=== PATIENT | male | born 1945 | race Caucasian/White ===

== ENCOUNTER → 2020-01-16 17:36 | Outpatient (BNVA) | payer MEDICARE, SELFPAY | PROVIDERS: PCP Nurse Practitioner Family; Visit Provider Nurse Practitioner Family | DX: R42 Dizziness and giddiness (principal); R53.83 Other fatigue; I10 Essential (primary) hypertension; T78.3XXA Angioneurotic edema, initial encounter; F10.10 Alcohol abuse, uncomplicated; E78.5 Hyperlipidemia, unspecified; E53.8 Deficiency of other specified B group vitamins; W57.XXXA Bitten or stung by nonvenomous insect and other nonvenomous arthropods, initial encounter; E55.9 Vitamin D deficiency, unspecified | CPT/HCPCS: 80053; 80061; 81003; 82306; 82607; 84443; 85025 ==

== ENCOUNTER 2020-02-14 07:22 | Outpatient (CLI) | payer MEDICARE, SELFPAY ==
--- NOTE | 2020-02-14 07:30 | XRR_ITS ---
PROCEDURE INFORMATION: Exam: XR Chest, 2 Views Exam date and time: 02/14/2020 8:21 AM Age: 74 years old Clinical indication: Pain and injury or trauma; Fall; Initial encounter; Blunt trauma (contusions or hematomas); Pleuordynia and other: Rib pain; Additional info: Rib pain; Pain on deep breath TECHNIQUE: Imaging protocol: XR of the chest Views: 2 views. COMPARISON: No relevant prior studies available. FINDINGS: Lungs: Mild hyperinflation. Pleural space: Unremarkable. No pleural effusion. No pneumothorax. Heart/Mediastinum: Unremarkable. No cardiomegaly. Bones/joints: Degenerative change of the spine. XR/XR chest 2V* [id number] IMPRESSION: 1. No acute cardiopulmonary process.
--- NOTE | 2020-02-14 07:30 | XRR_ITS ---
PROCEDURE INFORMATION: Exam: XR Right Ribs Exam date and time: 02/14/2020 8:21 AM Age: 74 years old Clinical indication: Pain and injury or trauma; Fall; Initial encounter; Rib area; Blunt trauma (contusions or hematomas); Other: Rib pain TECHNIQUE: Imaging protocol: XR Right ribs. Views: 2 views. COMPARISON: No relevant prior studies available. FINDINGS: Bones/joints: Degenerative change of the spine. Osteopenia. Degenerative change of right shoulder. Note of chronic fracture deformity of left 9th and 10th ribs. Soft tissues: Normal. XR/XR ribs RT 2V* [id number] IMPRESSION: Unremarkable right ribs.
--- NOTE | 2020-02-14 09:30 | US_ITS ---
WS: [id number] Complete ABDOMINAL ULTRASOUND HISTORY: elevated liver enzymes COMPARISON: None available. Liver: 16.0 cm in length. Liver is moderately enlarged. Increased attenuation throughout the liver wi th coarsened echotexture. No mass or bile duct dilatation. Gallbladder: Normally distended with no gallstones, wall thickening or pericholecystic fluid. Gallbladder wall thickness: 0.2 cm. Pancreas: Not visualized. CBD: 0.4 cm. Right kidney: 10.7 cm x 4.7 cm x 5.4 cm. No mass, cortical thickening or hydronephrosis. Left kidney: 9.3 cm x 4.7 cm x 6.0 cm. No mass, cortical thickening or hydronephrosis. Spleen: Poorly visualized spleen. Aorta and IVC are not very well visualized. No ascites. US/US abdomen complete* [id number] IMPRESSION: 1. Normal gallbladder. 2. Moderate hepatomegaly and hepatic steatosis. 3. Pancreas and spleen are not visualized.
--- NOTE | 2020-02-14 10:00 | CT_ITS ---
WS: [id number] CT HEAD NONCONTRAST HISTORY: dizziness; frequent falls TECHNIQUE: Contiguous axial imaging performed through the brain in 2.5 mm imaging. Bone and soft tiss ue windows. Sagittal and coronal reformats reviewed. All CT scans at [facility] use at ast one of these dose optimization techniques: automated exposure control; mA and/or kV adjustment pe r patient size (includes targeted exams where dose is matched to clinical indication); or iterative r econstruction. DLP: 1770.38 mGy.cm COMPARISON: None available. No acute intracranial hemorrhage, midline shift or mass effect. Mild atrophy and mild chronic ischemic change throughout the white matter. Ventricles: Normal size with no hydrocephalus. Extensive atherosclerotic calcification within the intracranial carotid arteries. Paranasal sinuses: Mucoperiosteal thickening involving the RIGHT frontal and ethmoid air cells. No ai r-fluid levels. Mastoid air cells: Well pneumatized. Calvarium and scalp: No skull fracture. There is scalp contusion and hematoma with suturing centered over the RIGHT frontoparietal region. CT/CT head wo con* [id number] IMPRESSION: 1. No acute intracranial hemorrhage or edema. 2. Mild cerebral atrophy and chronic ischemic disease. 3. No skull fracture. 4. Scalp hematoma and contusion over the RIGHT frontoparietal region.
== END 2020-02-14 07:23 | disposition home or self-care (01) ==
LOC: RAD 07:25
PROVIDERS: PCP Nurse Practitioner Family; Visit Provider Nurse Practitioner Family
DX: R42 Dizziness and giddiness (principal); I25.9 Chronic ischemic heart disease, unspecified; R29.6 Repeated falls; S00.03XA Contusion of scalp, initial encounter; X58.XXXA Exposure to other specified factors, initial encounter; R16.0 Hepatomegaly, not elsewhere classified; K76.0 Fatty (change of) liver, not elsewhere classified; R07.81 Pleurodynia
CPT/HCPCS: 70450; 71046; 71100; 76700

== ENCOUNTER → 2020-02-27 13:30 | Outpatient (BNVA) | payer MEDICARE, SELFPAY | PROVIDERS: PCP Nurse Practitioner Family; Visit Provider Family Medicine | DX: R74.8 Abnormal levels of other serum enzymes (principal); R44.3 Hallucinations, unspecified; R55 Syncope and collapse; F17.210 Nicotine dependence, cigarettes, uncomplicated | CPT/HCPCS: 86705; 86706; 86709; 86803; 87340 ==

== ENCOUNTER → 2020-09-25 11:59 | Outpatient (BNVA) | payer MEDICARE, SELFPAY | PROVIDERS: PCP Nurse Practitioner Family; Visit Provider Family Medicine | DX: E78.5 Hyperlipidemia, unspecified (principal); I10 Essential (primary) hypertension; Z12.5 Encounter for screening for malignant neoplasm of prostate | CPT/HCPCS: 80053; 80061; 84443; 85025; G0103 ==

== ENCOUNTER → 2021-07-03 14:20 | Outpatient (BNVA) | payer MEDICARE, SELFPAY | PROVIDERS: PCP Nurse Practitioner Family; Visit Provider Nurse Practitioner Family | DX: E53.8 Deficiency of other specified B group vitamins (principal); F10.10 Alcohol abuse, uncomplicated; E78.2 Mixed hyperlipidemia; I10 Essential (primary) hypertension | CPT/HCPCS: 80053; 80061; 82607; 82746 ==

== ENCOUNTER 2021-11-07 14:51 | Emergency (ER) | payer MEDICARE, SELFPAY ==
[2021-11-07 15:04] VITALS: BP 140/96; PULSE 77; RESP 16; TEMP 36.9; O2SAT 97; BMI 21.5
--- NOTE | 2021-11-07 15:06 | W.ED.GENADLT ---
HPI - General Adult General: Chief complaint: Psychiatric Symptoms Stated complaint: SI/ ETOH Time Seen by Provider: 11/07/21 14:54 History of Present Illness: Patient is brought in by EMS called with concern for suicidal ideation. Patient states he is not suicidal. He states he has drank a little bit of alcohol but he has no intention of hurting himself. He states his called the police because she thought he had abandoned her. He states that when asked if he was suicidal he answered that he does not care if he were to , however he does not want to and is not trying to kill himself. The patient is alert and oriented x3. He can walk a straight line and is not slurring his speech. Associated symptoms: Deny chest pain, dyspnea, headache(s), nausea, rash, palpitations or vomiting Review of Systems Const: Denies: fever(s) or body aches Eyes: Denies: change in vision or blurry vision ENMT: Denies: throat pain or odynophagia Card: Denies: chest pain or palpitations Resp: Denies: dyspnea or productive cough GI: Denies: abdominal pain, nausea or vomiting : Denies: flank pain or dysuria Musc: Denies: neck pain or back pain Skin/Breast: Denies: rash or pruritus Neuro: Denies: headache(s) or numbness in extremities Psych: Denies: anxiety or change in appetite Endo: Denies: polyuria or excessive sweating PFS ED PFSH: Medical History (Updated 11/07/21 @ 15:12 by Gunnar Hamilton MD) Alcohol abuse Hyperlipidemia Hypertension Vitamin B12 deficiency Family History Father CAD (coronary artery disease) Diabetes Social History (Updated 07/03/21 @ 14:18 by Michaela Carbajal LPN, RT) Smoking and tobacco status: current every day smoker cigarettes Packs smoked per day: 1 Years cigarettes smoked: 40 Second hand smoke exposure: No Alcohol intake: current Alcohol intake frequency: 3 or more drinks per day Caregiver/support person: Yes Marital status: Current occupational status: retired History of recent travel: No Current gender identity: Male Physical Exam Const: COMMON NORMALS: no acute distress, patient oriented x3, healthy appearing and alert HENMT: COMMON NORMALS: normocephalic and atraumatic HEAD & SCALP: normocephalic and atraumatic Eye: COMMON NORMALS: Equal, round and reactive pupils present and EOMs intact bilaterally PUPIL: Yes Equal, round and reactive pupils present Neck/C-Spine: COMMON NORMALS: full ROM and supple Resp: COMMON NORMALS: normal respiratory effort, No retractions and No use of accessory muscles Cardio: COMMON NORMALS: regular rate and regular rhythm RATE: regular rate RHYTHM: regular rhythm GI: COMMON NORMALS: Normal to inspection, nondistended, normoactive bowel sounds present, Soft to palpation and non-tender PALPATION: Yes Soft to palpation Back/Pelvis: COMMON NORMALS: thoracic and lumbar spine normal to inspection and no thoracic nor lumbar tenderness Extremity: COMMON NORMALS: normal to inspection and full ROM Neuro: COMMON NORMALS: patient oriented x3 SENSORIUM/ORIENTATION: Yes alert Psych: COMMON NORMALS: mental status grossly normal and cooperative Skin: COMMON NORMALS: no rashes or lesions noted and no wounds GENERAL SKIN EXAM: no rashes or lesions noted Course Vital Signs: Vital signs: Vital Signs Temperature 98.5 F 11/07/21 15:04 Pulse Rate 77 11/07/21 15:04 Respiratory Rate 16 11/07/21 15:04 Blood Pressure 140/96 11/07/21 15:04 Pulse Oximetry 97 11/07/21 15:04 [facility] - General Adult Medical Decision Making Patient is brought in by EMS called with concern for suicidal ideation. Patient states he is not suicidal. He states he has drank a little bit of alcohol but he has no intention of hurting himself. He states his called the police because she thought he had abandoned her. He states that when asked if he was suicidal he answered that he does not care if he were to , however he does not want to and is not trying to kill himself. The patient is alert and oriented x3. He can walk a straight line and is not slurring his speech. At this time I see no reason why I could keep the patient here against his will. Will discharge at this time with precautions to return for worsening or changing symptoms. Discharge Plan Discharge Patient Disposition: Home Clinical Impression: Encounter for psychological evaluation Condition: Stable Prescriptions: No Action aspirin [Adult Aspirin Regimen] 81 mg tablet,delayed release (DR/EC) 81 mg PO DAILY 0RF haemoph b poly conj-tet tox-PF 10 mcg/0.5 mL recon soln 0.5 ml IM ONCE Qty: 1 0RF lisinopril 10 mg tablet 10 mg PO DAILY 90 Days Qty: 90 0RF Rx Instructions: needs lab metoprolol succinate 25 mg tablet extended release 24 hr 25 mg PO DAILY 90 Days Qty: 90 0RF rosuvastatin 40 mg tablet 40 mg PO DAILY 90 Days Qty: 90 0RF tamsulosin 0.4 mg capsule 0.4 mg .ROUTE DAILY 90 Days Qty: 90 0RF Rx Instructions: 0.4 mg daily; venlafaxine 150 mg capsule,extended release 24hr 150 mg .ROUTE DAILY 90 Days Qty: 90 0RF Rx Instructions: 150 mg daily; Discharge Orders: Discharge ED (Routine); Ordered 11/07/21 Ordered By: Gunnar Hamilton Referrals: Michaela Kang FNP [Primary Care Provider] - Coding Level of Care Code ED Four Roll Calender Operator for Nigelg Fwd Exam Comprehensive
== END 2021-11-07 15:37 | disposition home or self-care (01) ==
PROVIDERS: Emergency Provider Emergency Medicine; PCP Nurse Practitioner Family
DX: Z00.8 Encounter for other general examination (principal); Z79.82 Long term (current) use of aspirin; E78.5 Hyperlipidemia, unspecified; I10 Essential (primary) hypertension; F17.210 Nicotine dependence, cigarettes, uncomplicated
CPT/HCPCS: 99283

== ENCOUNTER → 2022-03-02 12:02 | Outpatient (BNVA) | payer MEDICARE, SELFPAY | PROVIDERS: PCP Nurse Practitioner Family; Visit Provider Nurse Practitioner Family | DX: E78.5 Hyperlipidemia, unspecified (principal); R53.83 Other fatigue; I10 Essential (primary) hypertension; E53.8 Deficiency of other specified B group vitamins; F10.10 Alcohol abuse, uncomplicated; R74.8 Abnormal levels of other serum enzymes; Z12.5 Encounter for screening for malignant neoplasm of prostate; N40.0 Benign prostatic hyperplasia without lower urinary tract symptoms; Z12.11 Encounter for screening for malignant neoplasm of colon | CPT/HCPCS: 80053; 80061; 82607; 84443; G0103 ==

== ENCOUNTER 2022-03-27 14:35 | Emergency (ER) | payer MEDICARE, SELFPAY ==
[2022-03-27 14:42] VITALS: BP 105/65; PULSE 86; RESP 18; TEMP 36.8; O2SAT 97; BMI 20.7
--- NOTE | 2022-03-27 14:53 | XR_ITS ---
WS: [id number] Portable AP upright chest, 03/27/2022 Clinical Data: dyspnea/cough Comparison: PA and lateral chest, 02/14/2020. Findings: No nodules, masses or effusions are seen. The heart is normal. The pulmonary vascularity is not increased. No pneumonia or pneumothorax is seen. The aortic arch and descending thoracic aorta s how tortuosity. Monitor leads are on the chest wall. The diaphragms are flattened. XR/XR chest 1V portable [id number] Impression: Atherosclerosis and hyperinflation.
[2022-03-27] MEDS: sodium chloride 0.9% 500 ML 999 ML IV (15:05)
[2022-03-27 15:07] LABS: Basophils % 0.3 %; Hematocrit 39.8 % (42.0-52.0); Lymphocytes # 2.5 10^3/uL (0.8-4.8); Mean Corpuscular HGB Conc 35.2 g/dL (30.0-36.0); Mean Corpuscular Hemoglobin 33.7 pg (28.0-34.0); Mean Corpuscular Volume 95.7 fl (80-94); Mean Platelet Volume 10.6 fL (7.4-10.4); Monocytes % 9.9 %; Neutrophils # 6.45 10^3/uL (1.8-7.7); Neutrophils % 64.4 %; Nucleated Red Blood Cells % 0 %; Platelet Count 273 10^3/cmm (130-400); Red Blood Count 4.16 10^6/uL (4.1-5.3); Red Cell Distribution Width 13.8 % (12.1-15.1)
--- NOTE | 2022-03-27 15:13 | ECG_ITS ---
[facility] Test Date: 2022-03-27 Pat Name: Low Drew Department: Room: Gender: Male Batching Operator: : [id number] Requested By: Arthur Solis Order Number: [id number] Rea MD: Judy Geiger M.D. Measurements Intervals [place] Rate: 69 P: 72 ME: 190 QRS: 78 QRSD: 89 T: 40 QT: 383 QTc: 411 Interpretive Statements SINUS RHYTHM Nonspecific T wave changes LOW QRS VOLTAGE IN EXTREMITY LEADS [QRS DEFLECTION < 0.5 mV IN LIMB LEADS] Compared to ECG 01/03/2016 05:49:47 Low QRS voltage now present Sinus bradycardia no longer present Electronically Signed On 03-28-2022 18:52:27 CDT by Judy Geiger M.D. [id number]
[2022-03-27 15:31] LABS: Alanine Aminotransferase 30 U/L (0-41); Albumin Level 3.3 g/dL (3.5-5.2); Alkaline Phosphatase 137 IU/L (40-130); Anion Gap 18.1 (5-19); Aspartate Amino Transferase 28 U/L (0-40); Blood Urea Nitrogen 55 mg/dL (8-23); Calcium 9.2 mg/dL (8.5-10.5); Carbon Dioxide 24 mmol/L (22-29); Chloride 96 mmol/L (98-107); Globulin 3.8 g/dL (1.3-4.6); Glucose 93 mg/dL (65-115); Osmolality Calculated 295 mOsm/kg (285-295); Potassium 3.1 mmol/L (3.5-5.1); Sodium 135 mmol/L (136-145); Total Bilirubin 0.3 mg/dL (0.15-1.2); Total Protein 7.1 g/dL (6.6-8.7)
--- NOTE | 2022-03-27 15:31 | CTR_ITS ---
PROCEDURE INFORMATION: Exam: CT Head Without Contrast Exam date and time: 03/27/2022 3:43 PM Age: 76 years old Clinical indication: Injury or trauma; Additional info: Cloase dhead injury /fallls TECHNIQUE: Imaging protocol: Computed tomography of the head without contrast. Sagittal and coronal reformatted images were created and reviewed. COMPARISON: CT head wo con* [id number] 02/14/2020 7:28 AM RADIATION DOSE METRICS: Total DLP (mGy-cm): 1095.08 FINDINGS: Brain: No acute intracranial hemorrhage. No acute infarct. No intra-axial or extra-axial masses. No midline shift. New low-density bilateral frontotemporoparietal and right cerebellar subdural extra-axial fluid collections. The right frontotemporoparietal fluid collection measures 5.4 mm, the left frontotemporoparietal fluid collection measures 5.8 mm, in the right cerebellar hemisphere fluid collection measures 6.4 mm (series 7, images 35, 40, and 56). There is mild mass effect on the underlying brain parenchyma. Shine-white matter differentiation is unremarkable. Stable mild atrophy of the brain parenchyma. Stable mildly decreased attenuation in the deep white matter, consistent with mild chronic microangiopathic change. Cerebral ventricles: No hydrocephalus. Paranasal sinuses: Visualized paranasal sinuses are clear. Mastoid air cells: Small amount of fluid in the right mastoid air cells. Orbital cavities: No acute abnormality in the visualized orbits. Bones/joints: No acute fracture. Soft tissues: No acute abnormality of the extracranial soft tissues. Vasculature: Atherosclerotic changes in the visualized arteries. CT/CT head wo con* [id number] IMPRESSION: 1. 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 There is mild mass effect on the underlying brain parenchyma. No midline shift. No hydrocephalus. 2. No acute intracranial hemorrhage or acute infarct. 3. Stable mild atrophy of the brain parenchyma. 4. Stable mild chronic white matter microangiopathic change. 5. Small amount of fluid in the right mastoid air cells. 6. Incidental/nonacute findings are listed in the report.
--- NOTE | 2022-03-27 15:32 | W.ED.DIZZY ---
HPI - Dizziness General: Chief Complaint: Dizziness Stated Complaint: Dizzy Time Seen by Provider: 03/27/22 14:37 Source: patient Mode of arrival: ambulatory History of Present Illness: HPI Narrative: 76-year-old male presents emergency room with complaints of dizziness and multiple falls as well as right thumb pain. Patient presented to a local clinic and there after a fall and is complaining of pain in his right thumb he reports multiple recent falls due to dizziness he was found he hypotensive at the clinic and EMS was called. He is given 1 L lactated Ringer's in route and on arrival here his blood pressure is 105/65 he is awake and alert and oriented and is able to tell us that he falls frequently and some bruising about the left side of his head he denies any vomiting or diarrhea. Patient does admit to drinking at least 1 pint of vodka per day often times more. MD elicited complaint: dizziness Onset (ago): unknown Description: sense of movement and difficulty walking Context: other (Chronic heavy drinking) History of similar symptoms: Yes Exacerbating factors: other (Alcohol intake) Relieving factors: other (Abstinence from alcohol) Associated symptoms: Reports weakness; Denies change in hearing, chest pain, chills, cough, diaphoresis, ear discharge, ear pressure, fevers/chills, headache(s), malaise, nausea, nasal congestion, palpitations, rash, short of breath, syncope, tinnitus or vomiting Review of Systems Const: Denies: chills, malaise or diaphoresis ENMT: Denies: ear discharge, change in hearing, tinnitus or nasal congestion Card: Denies: chest pain, palpitations or syncope GI: Denies: nausea or vomiting Neuro: Denies: headache(s) PFS ED PFSH: Medical History (Updated 04/10/22 @ 08:33 by Arthur Mojica DO) Alcohol abuse Hyperlipidemia Hypertension Vitamin B12 deficiency Family History Father CAD (coronary artery disease) Diabetes Social History Smoking and tobacco status: current every day smoker cigarettes Packs smoked per day: 1 Years cigarettes smoked: 40 Second hand smoke exposure: No Alcohol intake: current Alcohol intake frequency: 3 or more drinks per day Caregiver/support person: Yes Marital status: Current occupational status: retired History of recent travel: No Current gender identity: Male Physical Exam Const: COMMON NORMALS: no acute distress GENERAL APPEARANCE: cooperative and comfortable ORIENTATION/CONSCIOUSNESS: Yes awake, Yes oriented to person, Yes oriented to place and Yes oriented to time HENMT: COMMON NORMALS: normocephalic, atraumatic, hearing grossly normal bilaterally, external ears normal, EAC's normal, TM's normal bilaterally, Normal nasal mucous membranes and turbinates present, moist oral mucous membranes and oropharynx normal HEAD & SCALP: normocephalic and atraumatic NOSE: Normal nasal mucous membranes and turbinates present EXTERNAL EAR: Yes external ears normal EXTERNAL AUDITORY CANAL: EAC's normal TYMPANIC MEMBRANE: TM's normal bilaterally Eye: COMMON NORMALS: Equal, round and reactive pupils present, EOMs intact bilaterally, conjunctivae normal and no scleral icterus CONJUNCTIVA: Yes conjunctivae normal PUPIL: Yes Equal, round and reactive pupils present Neck/C-Spine: COMMON NORMALS: full ROM, no lymphadenopathy, supple and no JVD Resp: COMMON NORMALS: normal respiratory effort, No retractions, No use of accessory muscles and clear to auscultation bilaterally AUSCULTATION: clear to auscultation bilaterally Cardio: COMMON NORMALS: no JVD, regular rate, regular rhythm and No murmurs present (Cardio) RATE: regular rate RHYTHM: regular rhythm GI: COMMON NORMALS: Soft to palpation and No hepatosplenomegaly present AUSCULTATION: Yes normoactive bowel sounds PALPATION: Yes Soft to palpation, No Tenderness to palpation present (GI), No Guarding due to palpation present (GI) and Yes No hepatosplenomegaly present Extremity: COMMON NORMALS: normal to inspection, capillary refill normal, no clubbing, cyanosis or edema, no calf tenderness and no pedal edema Neuro: SENSORIUM/ORIENTATION: Yes oriented to person, Yes oriented to place and Yes oriented to time Skin: COMMON NORMALS: no rashes or lesions noted GENERAL SKIN EXAM: no rashes or lesions noted Procedures Orthopedic Joint Reduction Joint #1: Time Out Performed: Yes Side: right Joint Reduction Location: finger ( R thumb) Technique used: direct manipulation Post-reduction neuro exam: intact Post-reduction vascular: intact Post Reduction X-Ray Obtained: Yes Post Reduction X-Ray Results: reduced Splint Applied: Yes Patient Tolerated Procedure: well Course Vital Signs: Vital signs: Vital Signs Temperature 98.2 F 03/27/22 14:42 Pulse Rate 71 03/27/22 22:40 Respiratory Rate 16 03/27/22 22:40 Blood Pressure 132/95 03/27/22 22:40 Pulse Oximetry 95 03/27/22 22:40 Oxygen Delivery Me thod 03/27/22 19:59 MDM - Dizziness Medical Decision Making Patient has acute on chronic subdural hematoma. He did lose consciousness with this. He has been falling down frequently there is mass-effect on parts of brain however there is no midline shift and no hydrocephalus. 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 He is definitely symptomatic from this at this point question is how much of his alcohol plays a role in these falls in conjunction with the subdurals I think some of them are precipitated by his frequent falls due to his alcohol and then exacerbated and recur more often because of the alcohol. In any event he needs evaluation urgently by neuro surgery. Transfer arrangements have been made. Medical Records I reviewed the patient's medical records. Lab Data I reviewed the patient's lab results. : 03/27/22 14:54 03/27/22 14:54 Radiology Impressions Chest X-Ray 03/27/22 14:53 Impression: Atherosclerosis and hyperinflation. Head CT 03/27/22 15:31 IMPRESSION: 1. 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 There is mild mass effect on the underlying brain parenchyma. No midline shift. No hydrocephalus. 2. No acute intracranial hemorrhage or acute infarct. 3. Stable mild atrophy of the brain parenchyma. 4. Stable mild chronic white matter microangiopathic change. 5. Small amount of fluid in the right mastoid air cells. 6. Incidental/nonacute findings are listed in the report. Finger X-Ray 03/27/22 17:27 IMPRESSION: 1. Interval closed reduction of the dislocation at the 1st interphalangeal joint. 2. Small bony densities at the base of the 1st distal phalanx are not visualized after closed reduction, again possible avulsed bone fragments cannot be ruled out. 3. Stable moderate soft tissue swelling at the right 1st finger. 4. Incidental/nonacute findings are listed in the report. Laboratory Results WBC 10.0 10^3/uL (4.0-10.0) 03/27/22 14:54 RBC 4.16 10^6/uL (4.1-5.3) 03/27/22 14:54 Hgb 14.0 g/dL (11.7-16.6) 03/27/22 14:54 Hct 39.8 % (42.0-52.0) L 03/27/22 14:54 MCV 95.7 fl (80-94) H 03/27/22 14:54 MCH 33.7 pg (28.0-34.0) 03/27/22 14:54 MCHC 35.2 g/dL (30.0-36.0) 03/27/22 14:54 RDW 13.8 % (12.1-15.1) 03/27/22 14:54 Plt Count 273 10^3/cmm (130-400) 03/27/22 14:54 MPV 10.6 fL (7.4-10.4) H 03/27/22 14:54 Neut % (Auto) 64.4 % 03/27/22 14:54 Lymph % (Auto) 25.0 % 03/27/22 14:54 [place] % (Auto) 9.9 % 03/27/22 14:54 Eos % (Auto) 0.0 % 03/27/22 14:54 Baso % (Auto) 0.3 % 03/27/22 14:54 Neut # (Auto) 6.45 10^3/uL (1.8-7.7) 03/27/22 14:54 Lymph # (Auto) 2.5 10^3/uL (0.8-4.8) 03/27/22 14:54 [place] # (Auto) 1.0 10^3/uL (0.2-0.9) H 03/27/22 14:54 Eos # (Auto) 0.0 10^3/uL (0.0-0.8) 03/27/22 14:54 Baso # (Auto) 0.0 10^3/uL (0.0-0.1) 03/27/22 14:54 Nucleated RBC % (auto) 0 % 03/27/22 14:54 Nucleated RBCs # 0.0 /100WBC 03/27/22 14:54 Sodium 135 mmol/L (136-145) L 03/27/22 14:54 Potassium 3.1 mmol/L (3.5-5.1) L 03/27/22 14:54 Chloride 96 mmol/L (98-107) L 03/27/22 14:54 Carbon Dioxide 24 mmol/L (22-29) 03/27/22 14:54 Anion Gap 18.1 (5-19) 03/27/22 14:54 BUN 55 mg/dL (8-23) H 03/27/22 14:54 Creatinine 4.6 mg/dL (0.7-1.2) H 03/27/22 14:54 GFR Calculation Not Reportable 03/27/22 14:54 Glucose 93 mg/dL (65-115) 03/27/22 14:54 Calculated Osmolality 295 mOsm/kg (285-295) 03/27/22 14:54 Calcium 9.2 mg/dL (8.5-10.5) 03/27/22 14:54 Total Bilirubin 0.3 mg/dL (0.15-1.2) 03/27/22 14:54 AST 28 U/L (0-40) 03/27/22 14:54 ALT 30 U/L (0-41) 03/27/22 14:54 Alkaline Phosphatase 137 IU/L (40-130) H 03/27/22 14:54 Total Protein 7.1 g/dL (6.6-8.7) 03/27/22 14:54 Albumin 3.3 g/dL (3.5-5.2) L 03/27/22 14:54 Globulin 3.8 g/dL (1.3-4.6) 03/27/22 14:54 Urine Color Yellow (Yellow) 03/27/22 17:53 Urine Appearance Clear (CLEAR) 03/27/22 17:53 Urine pH 5 (5-7) 03/27/22 17:53 Ur Specific [place] 1.010 (1.005-1.030) 03/27/22 17:53 Urine Protein Trace (Negative) 03/27/22 17:53 Urine Glucose (UA) Norm (Normal) 03/27/22 17:53 Urine Ketones Negative (Negative) 03/27/22 17:53 Urine Blood 2+ (Negative) H 03/27/22 17:53 Urine Nitrate Negative (Negative) 03/27/22 17:53 Urine Bilirubin Neg (Negative) 03/27/22 17:53 Urine Urobilinogen Norm mg/dL (Negative) 03/27/22 17:53 Ur Leukocyte Esterase Negative (Negative) 03/27/22 17:53 Urine RBC 0-4 /hpf (0-2) H 03/27/22 17:53 Urine WBC 5-10 /hpf (0-5) H 03/27/22 17:53 Ur Squamous Epith Cells 5-10 /hpf (0-5) H 03/27/22 17:53 Amorphous Sediment Not Reportable 03/27/22 17:53 Urine Bacteria None /hpf (NONE) 03/27/22 17:53 Discharge Plan Discharge Patient Disposition: Xfer Short-Term Hosp Clinical Impression: Acute subdural hematoma, Alcohol abuse, Chronic subdural hematoma Condition: Stable Referrals: Michaela Kang FNP [Primary Care Provider] - Coding Level of Care Code ED Cylinder Press Operator Apprentice for Leeann Garza
--- NOTE | 2022-03-27 15:36 | XRR_ITS ---
PROCEDURE INFORMATION: Exam: XR Right Finger(s) Exam date and time: 03/27/2022 4:11 PM Age: 76 years old Clinical indication: Injury or trauma; Fall; Bleeding/hemorrhage; Hand; Right; Additional info: R thumb TECHNIQUE: Imaging protocol: Radiologic exam of the Right fingers. Views: Minimum 2 views. COMPARISON: No relevant prior studies available. FINDINGS: Bones/joints: Marked degenerative changes at the 1st carpometacarpal joint. Mild degenerative changes at the radiocarpal joint and the 1st carpal metacarpal and interphalangeal joints. There is volar/lateral dislocation of 1 shaft width with approximately 5 mm of override of the 1st distal phalanx with respect to the 1st proximal phalanx. Few small bone fragments are seen adjacent to the base of the 1st distal phalanx, small avulsion fractures cannot be ruled out. Normal bone mineralization. Soft tissues: Moderate soft tissue swelling at the 1st finger. No radiopaque foreign body. XR/XR finger RT min 2V [id number] IMPRESSION: 1. There is volar/lateral dislocation of 1 shaft width with approximately 5 mm of override of the 1st distal phalanx with respect to the 1st proximal phalanx. 2. Few small bone fragments are seen adjacent to the base of the 1st distal phalanx, small avulsion fractures cannot be ruled out. 3. Moderate soft tissue swelling at the 1st finger.
[2022-03-27 17:19] VITALS: BP 154/115; PULSE 84; RESP 17; O2SAT 97
--- NOTE | 2022-03-27 17:27 | XRR_ITS ---
PROCEDURE INFORMATION: Exam: XR Right Finger(s) Exam date and time: 03/27/2022 5:54 PM Age: 76 years old Clinical indication: Screening exam; Post reduction; Additional info: Thumb post reduction TECHNIQUE: Imaging protocol: Radiologic exam of the Right fingers. Views: Minimum 2 views. COMPARISON: CR XR finger RT min 2V [id number] 03/27/2022 4:11 PM FINDINGS: Bones/joints: Interval closed reduction of the dislocation at the 1st interphalangeal joint. Stable degenerative changes in the visualized wrist and hand. No dislocation. Normal bone mineralization. Small bony densities at the base of the 1st distal phalanx are not visualized after closed reduction, again possible avulsed bone fragments cannot be ruled out. Soft tissues: Stable moderate soft tissue swelling at the right 1st finger. No radiopaque foreign body. XR/XR finger RT min 2V [id number] IMPRESSION: 1. Interval closed reduction of the dislocation at the 1st interphalangeal joint. 2. Small bony densities at the base of the 1st distal phalanx are not visualized after closed reduction, again possible avulsed bone fragments cannot be ruled out. 3. Stable moderate soft tissue swelling at the right 1st finger. 4. Incidental/nonacute findings are listed in the report.
[2022-03-27 17:37] VITALS: BP 154/105; PULSE 81; O2SAT 97
--- NOTE | 2022-03-27 17:43 | PC.NURSE ---
Rounded on patient, assisted pt with using urinal at bedside. Pt A&Ox4. Aware of plan of care, denies questions at this time.
[2022-03-27 18:00] VITALS: PULSE 75; RESP 16; O2SAT 97
[2022-03-27 18:30] LABS: Blood Urine 2+ (Negative); Glucose Urine UA Norm (Normal); Ketones Urine Negative (Negative); Protein Urine Trace (Negative); Urine Appearance Clear (CLEAR); Urine Color Yellow (Yellow); pH Urine 5 (5-7)
[2022-03-27 18:31] LABS: Add Urine Microscopic? YES; Bilirubin Urine Neg (Negative); Leukocyte Esterase Urine Negative (Negative); Nitrate Urine Negative (Negative); Urobilinogen Urine Norm (Negative)
[2022-03-27 18:33] LABS: Add Urine Culture? No; RBC Urine 0-4 /hpf (0-2)
--- NOTE | 2022-03-27 19:08 | PC.NURSE ---
Report given to Param
[2022-03-27 19:59] VITALS: BP 143/102; PULSE 80; RESP 18; O2SAT 98
[2022-03-27 22:40] VITALS: BP 132/95; PULSE 71; RESP 16; O2SAT 95
== END 2022-03-27 22:41 | disposition short-term general hospital (02) ==
PROVIDERS: Emergency Provider Family Medicine; PCP Nurse Practitioner Family
DX: I62.03 Nontraumatic chronic subdural hemorrhage (principal); I62.01 Nontraumatic acute subdural hemorrhage; F10.10 Alcohol abuse, uncomplicated; S63.124A Dislocation of interphalangeal joint of right thumb, initial encounter; E78.5 Hyperlipidemia, unspecified; I10 Essential (primary) hypertension; F17.210 Nicotine dependence, cigarettes, uncomplicated; W19.XXXA Unspecified fall, initial encounter
CPT/HCPCS: 26770; 70450; 71045; 73140; 80053; 81001; 85025; 93005; 96374; 99285; J3411; J7040

== ENCOUNTER 2023-02-25 11:58 | Emergency (ER) | payer MEDICARE, MEDICAID, SELFPAY ==
[2023-02-25 11:59] VITALS: BP 105/71; PULSE 81; RESP 16; TEMP 36.8; O2SAT 97; BMI 21.5
[2023-02-25 12:09] VITALS: BP 105/71; PULSE 66; O2SAT 98
--- NOTE | 2023-02-25 12:15 | XRR_ITS ---
PROCEDURE INFORMATION: Exam: XR Left Hip Exam date and time: 02/25/2023 12:44 PM Age: 77 years old Clinical indication: Injury or trauma; Fall; Blunt trauma (contusions or hematomas); Left; Hip TECHNIQUE: Imaging protocol: Radiologic exam of the left hip. Views: 2 or 3 views hip with pelvis when performed. COMPARISON: No relevant prior studies available. FINDINGS: Bones/joints: No acute fracture or dislocation. Joint spacing and alignment are anatomic. Lower lumbar spine degenerative changes. Soft tissues: Unremarkable. XR/XR hip LT 2-3V wo/w pel* [id number] IMPRESSION: No acute fracture or dislocation.
--- NOTE | 2023-02-25 12:15 | XRR_ITS ---
PROCEDURE INFORMATION: Exam: XR Left Elbow Exam date and time: 02/25/2023 12:41 PM Age: 77 years old Clinical indication: Injury or trauma; Fall; Blunt trauma (contusions or hematomas); Elbow; Left TECHNIQUE: Imaging protocol: Radiologic exam of the left elbow. Views: 3 or more views. COMPARISON: No relevant prior studies available. FINDINGS: Bones/joints: No acute fracture. Joints are maintained. Medial greater than lateral epicondyle enthesophytes. Soft tissues: Soft tissue swelling overlies the olecranon and ulnar dorsal proximal forearm. XR/XR elbow LT min 3V* [id number] IMPRESSION: Left elbow and forearm soft tissue swelling without acute fracture or dislocation.
--- NOTE | 2023-02-25 12:18 | W.ED.FALL ---
HPI - Fall General: Chief Complaint: Fall Stated Complaint: fall Time Seen by Provider: 02/25/23 12:02 History of Present Illness: This patient is a 77 year old from a [facility] being seen for a witnessed fall. I spoke with the patient's nurse at the [facility] and she confirms that he did not hit his head. He was sent due to concern for hip and elbow pain. He has had a subdural in the past. He has dementia. He told me that he was here for click, click, click . Then he told me that he had fallen out of a tree. He is quite pleasant and cheerful, but is unable to provide any meaningful history. [facility] ED PFSH: Medical History (Updated 02/25/23 @ 13:26 by Mili Mcneil MD) Alcohol abuse Hyperlipidemia Hypertension Vitamin B12 deficiency Family History Father CAD (coronary artery disease) Diabetes Social History Smoking and tobacco status: current every day smoker cigarettes Packs smoked per day: 1 Years cigarettes smoked: 40 Second hand smoke exposure: No Alcohol intake: current Alcohol intake frequency: 3 or more drinks per day Substance/Drug Use: never Caregiver/support person: Yes Marital status: Current occupational status: retired Current gender identity: Male Physical Exam Const: COMMON NORMALS: no acute distress, no limitations and alert GENERAL APPEARANCE: cooperative and comfortable HENMT: HEAD & SCALP: normal to inspection FACE & SINUS: normal facial exam Eye: GENERAL EYE: appearance normal, both eyes and all related structures Neck/C-Spine: COMMON NORMALS: supple, no meningeal signs and no JVD Chest: COMMONS NORMALS: normal inspection of the chest Resp: COMMON NORMALS: normal respiratory effort, No use of accessory muscles and clear to auscultation bilaterally AUSCULTATION: clear to auscultation bilaterally Cardio: COMMON NORMALS: no JVD, regular rate, regular rhythm and No murmurs present (Cardio) RATE: regular rate RHYTHM: regular rhythm GI: COMMON NORMALS: Normal to inspection, nondistended, normoactive bowel sounds present, Soft to palpation and non-tender INSPECTION: Yes normal to inspection AUSCULTATION: Yes normoactive bowel sounds PALPATION: Yes Soft to palpation Back/Pelvis: COMMON NORMALS: thoracic and lumbar spine normal to inspection OTHER: swelling, hematoma left elbow/forearm. Denies hip pain to me and ambulated in the ED Neuro: COMMON NORMALS: moves all extremities, no focal motor deficits and no sensory deficits noted SENSORIUM/ORIENTATION: Yes alert MENINGEAL SIGNS: Yes no meningeal signs Psych: COMMON NORMALS: mental status grossly normal, cooperative and normal affect Skin: COMMON NORMALS: no rashes or lesions noted and turgor normal GENERAL SKIN EXAM: no rashes or lesions noted and turgor normal Course Vital Signs: Vital signs: Vital Signs Temperature 98.3 F 02/25/23 11:59 Pulse Rate 66 02/25/23 12:09 Respiratory Rate 19 H 02/25/23 13:16 Blood Pressure 118/58 02/25/23 13:16 Pulse Oximetry 99 02/25/23 13:16 Oxygen Delivery Me thod Room Air 02/25/23 13:16 MDM - Fall Medical Decision Making fall at the [facility] - witnessed. staff has no concern for head injury or syncope. Xrays neg for fractures. outpatient follow up. Lab Data Radiology Impressions Elbow X-Ray 02/25/23 12:15 IMPRESSION: Left elbow and forearm soft tissue swelling without acute fracture or dislocation. Hip/Pelvis X-Ray 02/25/23 12:15 IMPRESSION: No acute fracture or dislocation. Discharge Plan Discharge Patient Disposition: [facility] Clinical Impression: Fall, Contusion of forearm, left, Dementia Condition: Stable Discharge Orders: Discharge ED (Routine); Ordered 02/25/23 Ordered By: Mili Mcneil Referrals: Michaela Kang FNP [Primary Care Provider] - Coding Level of Care Code ED Stenotype Machine Operator for Leeann Garza
[2023-02-25 13:16] VITALS: BP 118/58; RESP 19; O2SAT 99
== END 2023-02-25 13:51 ==
PROVIDERS: Emergency Provider Emergency Medicine; PCP Nurse Practitioner Family
DX: S50.12XA Contusion of left forearm, initial encounter (principal); F03.90 Unspecified dementia, unspecified severity, without behavioral disturbance, psychotic disturbance, mood disturbance, and anxiety; E78.5 Hyperlipidemia, unspecified; I10 Essential (primary) hypertension; F17.210 Nicotine dependence, cigarettes, uncomplicated; W19.XXXA Unspecified fall, initial encounter; Y92.129 Unspecified place in nursing home as the place of occurrence of the external cause
CPT/HCPCS: 73080; 73502; 99284

== ENCOUNTER 2023-03-08 22:25 | Emergency (ER) | payer MEDICARE, MEDICAID, SELFPAY ==
[2023-03-08 22:27] VITALS: BP 136/89; PULSE 75; RESP 18; TEMP 36.8; O2SAT 98; BMI 21.5
--- NOTE | 2023-03-08 22:32 | CTR_ITS ---
PROCEDURE INFORMATION: Exam: CT Cervical Spine Without Contrast Exam date and time: 03/08/2023 10:48 PM Age: 77 years old Clinical indication: Injury or trauma; Fall; Blunt trauma TECHNIQUE: Imaging protocol: Computed tomography of the cervical spine without contrast. Radiation optimization: All CT scans at this facility use at least one of these dose optimization techniques: automated exposure control; mA and/or kV adjustment per patient size (includes targeted exams where dose is matched to clinical indication); or iterative reconstruction. REPORTING DATA: Count of CT and Cardiac NM exams in prior 12 months: This patient has received [address] and 0 known cardiac nuclear medicine studies in the 12 months prior to the current study. COMPARISON: CT angio neck [id number] 10/31/2018 8:40 AM RADIATION DOSE METRICS: Total DLP (mGy-cm): 179.17 FINDINGS: Bones/joints: On axial CT images, no definite acute fracture is visible. Sagittal and coronal reconstructions show no acute fracture or subluxation. Mild to moderate degenerative disc changes and facet joint arthritis at multiple levels. No definite/significant disc herniation by CT, MRI could be more sensitive if clinically indicated. Mastoid air cells: Very small amount of fluid in some inferior right mastoid air cells. No visible fracture in this region. Lungs: No significant acute finding in the upper lungs. CT/CT cervical spin wo con* [id number] IMPRESSION: 1. No definite acute fracture or subluxation by CT. 2. Other findings discussed above.
--- NOTE | 2023-03-08 22:32 | CTR_ITS ---
PROCEDURE INFORMATION: Exam: CT Head Without Contrast Exam date and time: 03/08/2023 10:45 PM Age: 77 years old Clinical indication: Injury or trauma; Blunt trauma (contusions or hematomas); Consciousness not specified; Injury details: Patient from [facility]. HX of dementia. Patient was walking and got tripped on doorway. Patient hit head and has approx 2 cm lac to head per EMS. Was witnessed fall. No loc. Is taking plavix. TECHNIQUE: Imaging protocol: Computed tomography of the head without contrast. Radiation optimization: All CT scans at this facility use at least one of these dose optimization techniques: automated exposure control; mA and/or kV adjustment per patient size (includes targeted exams where dose is matched to clinical indication); or iterative reconstruction. REPORTING DATA: Count of CT and Cardiac NM exams in prior 12 months: This patient has received [address] and 0 known cardiac nuclear medicine studies in the 12 months prior to the current study. COMPARISON: CT head wo con* [id number] 03/27/2022 3:43 PM RADIATION DOSE METRICS: Total DLP (mGy-cm): 1143.58 FINDINGS: Brain: No acute intracranial hemorrhage or mass effect. There is decreased attenuation in the periventricular white matter, likely from microvascular disease. The previously seen bilateral supratentorial low-attenuation subdural hygromas have essentially resolved in the interval. The similar finding in the lateral aspect of the right posterior fossa is not significantly changed. No definite acute infarct by CT. MRI would be more sensitive/specific for detection, as clinically directed. Cerebral ventricles: Ventricle size is normal for age. Paranasal sinuses: Mild mucosal thickening/fluid in the frontal, ethmoid, and maxillary sinuses. Mastoid air cells: No significant acute finding. Bones/joints: No definite acute skull fracture. Soft tissues: Evidence for soft tissue injury/scalp hematoma/laceration in the left frontal region. Vasculature: Vascular calcifications in the internal carotid and vertebral basilar systems. CT/CT head wo con* [id number] IMPRESSION: 1. No acute intracranial hemorrhage or mass effect. 2. Changes of microvascular disease. 3. No definite acute infarct by CT, see above. 4. Other findings discussed above.
--- NOTE | 2023-03-08 22:32 | XRR_ITS ---
PROCEDURE INFORMATION: Exam: XR Pelvis Exam date and time: 03/08/2023 10:41 PM Age: 77 years old Clinical indication: Injury or trauma; Fall; Blunt trauma (contusions or hematomas); Bilateral; Pelvic region TECHNIQUE: Imaging protocol: Radiologic exam of the pelvis. Views: 1 or 2 view. COMPARISON: CR XR hip LT 2-3V wo/w pel* [id number] 02/25/2023 12:44 PM FINDINGS: Bones/joints: Moaq-or-lptthuvm osteoarthritis of the hips bilaterally. Lumbar spine degenerative disc space disease. Soft tissues: Unremarkable. XR/XR pelvis 1-2V* [id number] IMPRESSION: 1. Negative for fracture or dislocation. 2. Gdzm-at-zwypngng osteoarthritis of the hips bilaterally. 3. Lumbar spine degenerative disc space disease.
--- NOTE | 2023-03-08 22:33 | ED_ITS ---
HPI - Head Injury General: Chief complaint: Head Injury Stated complaint: FALL Time Seen by Provider: 03/08/23 22:26 Source: patient and EMS Mode of arrival: EMS Limitations: altered mental status History of Present Illness: 77-year-old male who is here from half-way after a fall. His witnessed fall he tripped in the doorway he did hit his head has a laceration to the left side of his forehead. He has severe dementia and he does not remember the fall. He does complain of a slight headache denies any pain elsewhere does have a laceration left side of his head. Review of Systems General: Reports: ROS unobtainable due to mental status PFS ED PFSH: Medical History (Updated 03/08/23 @ 23:31 by Iraida Echavarria MD) Alcohol abuse Hyperlipidemia Hypertension Vitamin B12 deficiency Family History Father CAD (coronary artery disease) Diabetes Social History Smoking and tobacco status: current every day smoker cigarettes Packs smoked per day: 1 Years cigarettes smoked: 40 Second hand smoke exposure: No Alcohol intake: current Alcohol intake frequency: 3 or more drinks per day Substance/Drug Use: never Caregiver/support person: Yes Marital status: Current occupational status: retired Current gender identity: Male Physical Exam Const: COMMON NORMALS: no acute distress and healthy appearing; negative for patient oriented x3 HENMT: COMMON NORMALS: normocephalic HEAD & SCALP: normocephalic OTHER: 5cm laceration to left forehead Eye: COMMON NORMALS: conjunctivae normal CONJUNCTIVA: Yes conjunctivae normal Neck/C-Spine: COMMON NORMALS: full ROM and supple Chest: COMMONS NORMALS: normal inspection of the chest and normal palpation of entire chest wall Resp: COMMON NORMALS: normal respiratory effort, No retractions, No use of accessory muscles and clear to auscultation bilaterally AUSCULTATION: clear to auscultation bilaterally Cardio: COMMON NORMALS: regular rate, regular rhythm and No murmurs present (Cardio) RATE: regular rate RHYTHM: regular rhythm GI: COMMON NORMALS: Normal to inspection, nondistended, normoactive bowel sounds present, Soft to palpation, non-tender and no masses PALPATION: Yes Soft to palpation Extremity: COMMON NORMALS: normal to inspection and full ROM Neuro: COMMON NORMALS: moves all extremities and no focal motor deficits; negative for patient oriented x3 Psych: COMMON NORMALS: Normal thought process present and cooperative; negative for mental status grossly normal THOUGHT PROCESS: Normal thought process present Skin: COMMON NORMALS: no rashes or lesions noted and no wounds GENERAL SKIN EXAM: no rashes or lesions noted Procedures Laceration Laceration 1: Site: face (forehead) Side (If applicable): left Size (cm): 5 Description: irregular Depth: simple, single layer Local Anesthetic: lidocaine 1% and with epi Amount of anesthesia used (mL): 10 Pre-repair: wound explored, irrigated extensively and deep structures intact Skin layer closed with: nylon Size (cm): 5-0 Number of sutures: 8 Technique: simple, interrupted Course Vital Signs: Vital signs: Vital Signs Temperature 98.2 F 03/08/23 22:27 Pulse Rate 75 03/08/23 22:27 Respiratory Rate 18 03/08/23 22:27 Blood Pressure 136/89 03/08/23 22:27 Pulse Oximetry 98 03/08/23 22:27 Oxygen Delivery Me thod Room Air 03/08/23 22:27 MDM - Head Injury Medcial Decision Making Patient presents here with a head injury from a fall he does have a laceration that I repaired CTs here are normal he is stable for discharge back to the half-way. Medical Records I reviewed the patient's medical records. Lab Data I reviewed the patient's lab results. Radiology Impressions Cervical Spine CT 03/08/23 22:32 IMPRESSION: 1. No definite acute fracture or subluxation by CT. 2. Other findings discussed above. Head CT 03/08/23 22:32 IMPRESSION: 1. No acute intracranial hemorrhage or mass effect. 2. Changes of microvascular disease. 3. No definite acute infarct by CT, see above. 4. Other findings discussed above. Discharge Plan Discharge Patient Disposition: Home Clinical Impression: Laceration of head Condition: Stable Prescriptions: No Action aspirin [Adult Aspirin Regimen] 81 mg tablet,delayed release (DR/EC) 81 mg PO DAILY lisinopril 10 mg tablet 10 mg PO DAILY 90 Days Qty: 90 1RF metoprolol succinate 25 mg tablet extended release 24 hr 25 mg PO DAILY 90 Days Qty: 90 1RF rosuvastatin 40 mg tablet 40 mg PO DAILY 90 Days Qty: 90 1RF venlafaxine 150 mg capsule,extended release 24hr 150 mg PO DAILY Rx Instructions: 150 mg daily; tamsulosin 0.4 mg capsule 0.4 mg PO DAILY Discharge Orders: Discharge ED (Routine); Ordered 03/08/23 Ordered By: Iraida Echavarria Referrals: Michaela Kang FNP [Primary Care Provider] - 4-7 days Discharge Diet: Advance as tolerated Discharge Activity: Resume usual activity Patient Instructions: Care For Your Stitches (ED) Activity Restrictions/Additional Instructions: suture removal in 10 days Coding Level of Care Code ED Gas Maker Helper for Leeann Garza
[2023-03-08 23:31] VITALS: BP 101/73; PULSE 89; O2SAT 98
[2023-03-09 00:01] VITALS: BP 105/80; PULSE 92; O2SAT 97
[2023-03-09 01:30] VITALS: BP 106/81; RESP 16
[2023-03-09 03:00] VITALS: BP 106/75; PULSE 65; O2SAT 99
[2023-03-09 03:30] VITALS: BP 107/74; PULSE 80
[2023-03-09 05:00] VITALS: BP 123/85; PULSE 80; RESP 16
[2023-03-09 06:30] VITALS: BP 122/80
--- NOTE | 2023-03-09 09:02 | PC.NURSE ---
ems here to transport pt back to [place]. pt has removed bandage. wound still oozing blood. new 4x4 and gauze kerlix applied. pt c/o tenderness to area and coached to leave bandage alone. pt responds saying ok.
== END 2023-03-09 09:04 | disposition home or self-care (01) ==
PROVIDERS: Emergency Provider Emergency Medicine; PCP Nurse Practitioner Family
DX: S01.81XA Laceration without foreign body of other part of head, initial encounter (principal); W01.0XXA Fall on same level from slipping, tripping and stumbling without subsequent striking against object, initial encounter; F03.90 Unspecified dementia, unspecified severity, without behavioral disturbance, psychotic disturbance, mood disturbance, and anxiety; E78.5 Hyperlipidemia, unspecified; I10 Essential (primary) hypertension; F17.210 Nicotine dependence, cigarettes, uncomplicated; Z79.82 Long term (current) use of aspirin
CPT/HCPCS: 12013; 70450; 72125; 72170; 99284

== ENCOUNTER 2023-03-10 07:00 | Emergency (ER) | payer MEDICARE, MEDICAID, SELFPAY ==
[2023-03-10] VITALS (8 sets, daily range): BP systolic 112–137; BP diastolic 81–95; PULSE 78–104; RESP 14–19; TEMP 37; O2SAT 91–100
--- NOTE | 2023-03-10 07:11 | ED_ITS ---
HPI - Fall General: Chief Complaint: Fall Stated Complaint: FAll Time Seen by Provider: 03/10/23 07:02 Source: patient and EMS Mode of arrival: EMS History of Present Illness: 77-year-old male presents emergency room after a fall. Patient was here last night had a fall has a small laceration and abrasion to the left methodist area CT of his head was done was negative. Patient has multiple falls in the past he was discharged from the ER went back to the halfway he was found down again this morning around 4 AM in his room on the floor. He has previously fallen and had a subdural hematoma and was transferred to tertiary care staff referred him back to the ER because of the second fall. Reviewing his chart it appears he is on aspirin and Plavix no other anticoagulants he says no report of vomiting since this happened. He is denying headache. He has some ecchymosis about the left eye from the previous fall. His old records were reviewed. complaint: fall Onset (ago): hour(s) Fall witnessed: no Place fall occurred: halfway/SNF Loss of consciousness: None Prolonged down time: no Location of injury: head Associated symptoms-after fall: Denies abdominal pain, chest pain or neck pain Review of Systems Const: Denies: fever(s) or chills Card: Denies: chest pain Resp: Denies: dyspnea GI: Denies: abdominal pain : Denies: dysuria, urinary frequency or urinary urgency Musc: Denies: neck pain or back pain [facility] ED PFSH: Medical History (Updated 03/10/23 @ 09:27 by Arthur Mojica DO) Alcohol abuse Hyperlipidemia Hypertension Vitamin B12 deficiency Family History Father CAD (coronary artery disease) Diabetes Social History Smoking and tobacco status: current every day smoker cigarettes Packs smoked per day: 1 Years cigarettes smoked: 40 Second hand smoke exposure: No Alcohol intake: current Alcohol intake frequency: 3 or more drinks per day Substance/Drug Use: never Caregiver/support person: Yes Marital status: Current occupational status: retired Current gender identity: Male Physical Exam Const: GENERAL APPEARANCE: cooperative and comfortable ORIENTATION/CONSCIOUSNESS: Yes awake HENMT: COMMON NORMALS: normocephalic and hearing grossly normal bilaterally HEAD & SCALP: normocephalic Resp: COMMON NORMALS: normal respiratory effort, No retractions, No use of a ccessory muscles and clear to auscultation bilaterally AUSCULTATION: clear to auscultation bilaterally Cardio: COMMON NORMALS: regular rate, regular rhythm and No murmurs present (Cardio) RATE: regular rate RHYTHM: regular rhythm GI: COMMON NORMALS: Soft to palpation and No hepatosplenomegaly present AUSCULTATION: Yes normoactive bowel sounds PALPATION: Yes Soft to palpation, No Tenderness to palpation present (GI), No Guarding due to palpation present (GI) and Yes No hepatosplenomegaly present Extremity: COMMON NORMALS: normal to inspection, capillary refill normal, no clubbing, cyanosis or edema, no calf tenderness and no pedal edema Skin: COMMON NORMALS: no rashes or lesions noted GENERAL SKIN EXAM: no rashes or lesions noted Course Vital Signs: Vital signs: Vital Signs Temperature 98.6 F 03/10/23 07:04 Pulse Rate 94 03/10/23 08:30 Respiratory Rate 14 03/10/23 08:30 Blood Pressure 129/93 03/10/23 08:30 Pulse Oximetry 100 03/10/23 08:15 Oxygen Delivery Me thod Room Air 03/10/23 07:04 MDM - Fall Medical Decision Making Patient fell again after being seen most recently. No new head trauma the bruising and abrasions present were from previous fall. CT of head unremarkable neurologically patient appears to be at baseline continue current medications and fall precautions in the halfway patient discharged back to the halfway. Medical Records I reviewed the patient's medical records. Lab Data I reviewed the patient's lab results. 03/10/23 07:29 03/10/23 07:[address] 03/10/23 08:27 IMPRESSION: No acute intracranial abnormality. Laboratory Results WBC 15.1 10^3/uL (4.0-10.0) H 03/10/23 07:29 RBC 3.70 10^6/uL (4.1-5.3) L 03/10/23 07:29 Hgb 10.6 g/dL (11.7-16.6) L 03/10/23 07:29 Hct 33.6 % (42.0-52.0) L 03/10/23 07: MCV 90.8 fl (80-94) 03/10/23 07: MCH 28.6 pg (28.0-34.0) 03/10/23 07: MCHC 31.5 g/dL (30.0-36.0) 03/10/23 07: RDW 15.0 % (12.1-15.1) 03/10/23 07: Plt Count 326 10^3/cmm (130-400) 03/10/23 07: MPV 9.8 fL (7.4-10.4) 03/10/23 07: Neut % (Auto) 81.3 % 03/10/23 07: Lymph % (Auto) 12.4 % 03/10/23 07: [place] % (Auto) 5.4 % 03/10/23 07: Eos % (Auto) 0.2 % 03/10/23 07: Baso % (Auto) 0.3 % 03/10/23 07: Neut # (Auto) 12.32 10^3/uL (1.8-7.7) H 03/10/23 07: Lymph # (Auto) 1.9 10^3/uL (0.8-4.8) 03/10/23 07: [place] # (Auto) 0.8 10^3/uL (0.2-0.9) 03/10/23 07: Eos # (Auto) 0.0 10^3/uL (0.0-0.8) 03/10/23 07: Baso # (Auto) 0.1 10^3/uL (0.0-0.1) 03/10/23 07: Nucleated RBC % (auto) 0 % 03/10/23 07: Nucleated RBCs # 0.0 /100WBC 03/10/23 07: Sodium 136 mmol/L (136-145) 03/10/23 07: Potassium 4.4 mmol/L (3.5-5.1) 03/10/23 07: Chloride 101 mmol/L (98-107) 03/10/23 07: Carbon Dioxide 25 mmol/L (22-29) 03/10/23 07:29 Anion Gap 14.4 (5-19) 03/10/23 07:29 BUN 15 mg/dL (8-23) 03/10/23 07:29 Creatinine 1.3 mg/dL (0.7-1.2) H 03/10/23 07:29 GFR Calculation Not Reportable 03/10/23 07:29 Glucose 95 mg/dL (65-115) 03/10/23 07:29 Calculated Osmolality 283 mOsm/kg (285-295) L 03/10/23 07:29 Calcium 9.4 mg/dL (8.5-10.5) 03/10/23 07:29 Total Bilirubin 0.5 mg/dL (0.15-1.2) 03/10/23 07:29 AST 14 U/L (0-40) 03/10/23 07:29 ALT 12 U/L (0-41) 03/10/23 07:29 Alkaline Phosphatase 139 U/L (40-130) H 03/10/23 07:29 Total Protein 7.7 g/dL (6.6-8.7) 03/10/23 07:29 Albumin 3.9 g/dL (3.5-5.2) 03/10/23 07:29 Globulin 3.8 g/dL (1.3-4.6) 03/10/23 07:29 Discharge Plan Discharge Patient Disposition: Home Clinical Impression: Fall Condition: Stable Prescriptions: No Action Seroquel 25 mg Tablet 25 mg PO TID PRN (Reason: Agitation) clopidogrel 75 mg tablet 75 mg PO QPM quetiapine 100 mg tablet 150 mg PO QPM haloperidol lactate 5 mg/mL solution 5 mg IM Q8H PRN (Reason: Agitation) metoprolol tartrate 25 mg tablet 12.5 mg PO BID quetiapine 50 mg tablet 50 mg PO QAM rosuvastatin 40 mg tablet 40 mg PO QPM naltrexone 50 mg tablet 50 mg PO DAILY Senna-S 8.6-50 mg Tablet 1 tab-cap PO BID venlafaxine 150 mg capsule,extended release 24hr 150 mg PO DAILY thiamine HCl (vitamin B1) 100 mg Tablet 100 mg PO DAILY tamsulosin 0.4 mg capsule 0.4 mg PO DAILY trazodone 100 mg tablet 100 mg PO QPM folic acid 1 mg tablet 1 mg PO DAILY hydroxyzine HCl 25 mg tablet 25 mg PO Q8H PRN (Reason: Anxiety) zolpidem 5 mg tablet 5 mg PO QPM Benefiber Clear SF (dextrin) 3 gram/3.5 gram Powder In Packet 1 packet PO DAILY PRN (Reason: Constipation) Rx Instructions: mix into at least 4 oz water or juice before administering melatonin 3 mg Capsule 3 mg PO QPM Discharge Orders: Discharge ED (Routine); Ordered 03/10/23 Ordered By: Arthur Mojica Referrals: Michaela Kang FNP [Nurse Practitioner] - Discharge Diet: Usual diet Discharge Activity: Resume usual activity Patient Instructions: Opioid Safety, Pain Management Coding Level of Care Code ED Garbage Truck Driver for Leeann Garza
--- NOTE | 2023-03-10 07:12 | ECG_ITS ---
[facility] Test Date: 2023-03-10 Pat Name: Low Drew Department: Room: Gender: Male Forms Designer: : 1945 Requested By: Arthur Solis Order Number: [id number] Reading MD: Measurements Intervals [place] Rate: 86 P: 54 MD: 186 QRS: 87 QRSD: 82 T: 50 QT: 345 QTc: 415 Interpretive Statements SINUS RHYTHM WITH OCCASIONAL VENTRICULAR PREMATURE COMPLEXES [id number]
[2023-03-10] MEDS: sodium chloride 0.9% 500 ML IV (07:38)
[2023-03-10 07:49] LABS: Basophils # 0.1 10^3/uL (0.0-0.1); Basophils % 0.3 %; Eosinophils % 0.2 %; Hematocrit 33.6 % (42.0-52.0); Hemoglobin 10.6 g/dL (11.7-16.6); Lymphocytes # 1.9 10^3/uL (0.8-4.8); Lymphocytes % 12.4 %; Mean Corpuscular HGB Conc 31.5 g/dL (30.0-36.0); Mean Corpuscular Hemoglobin 28.6 pg (28.0-34.0); Mean Corpuscular Volume 90.8 fl (80-94); Mean Platelet Volume 9.8 fL (7.4-10.4); Monocytes # 0.8 10^3/uL (0.2-0.9); Monocytes % 5.4 %; Neutrophils # 12.32 10^3/uL (1.8-7.7); Neutrophils % 81.3 %; Nucleated Red Blood Cells % 0 %; Platelet Count 326 10^3/cmm (130-400); White Blood Count 15.1 10^3/uL (4.0-10.0)
[2023-03-10 07:53] LABS: Alanine Aminotransferase 12 U/L (0-41); Albumin Level 3.9 g/dL (3.5-5.2); Alkaline Phosphatase 139 U/L (40-130); Anion Gap 14.4 (5-19); Aspartate Amino Transferase 14 U/L (0-40); Blood Urea Nitrogen 15 mg/dL (8-23); Calcium 9.4 mg/dL (8.5-10.5); Carbon Dioxide 25 mmol/L (22-29); Chloride 101 mmol/L (98-107); Globulin 3.8 g/dL (1.3-4.6); Glucose 95 mg/dL (65-115); Osmolality Calculated 283 mOsm/kg (285-295); Potassium 4.4 mmol/L (3.5-5.1); Sodium 136 mmol/L (136-145); Total Bilirubin 0.5 mg/dL (0.15-1.2); Total Protein 7.7 g/dL (6.6-8.7)
--- NOTE | 2023-03-10 08:27 | CTR_ITS ---
PROCEDURE INFORMATION: Exam: CT Head Without Contrast Exam date and time: 03/10/2023 8:38 AM Age: 77 years old Clinical indication: Injury or trauma; Fall; Blunt trauma (contusions or hematomas); Consciousness not specified; Additional info: Fall, closed head injury TECHNIQUE: Imaging protocol: Computed tomography of the head without contrast. Radiation optimization: All CT scans at this facility use at least one of these dose optimization techniques: automated exposure control; mA and/or kV adjustment per patient size (includes targeted exams where dose is matched to clinical indication); or iterative reconstruction. REPORTING DATA: Count of CT and Cardiac NM exams in prior 12 months: This patient has received 3 known CTs and 0 known cardiac nuclear medicine studies in the 12 months prior to the current study. COMPARISON: CT head wo con* [id number] 03/08/2023 10:45 PM RADIATION DOSE METRICS: Total DLP (mGy-cm): 1268.42 FINDINGS: Brain: No hemorrhage, mass effect or midline shift. No acute, major vascular distribution infarction identified. There is foci of decreased attenuation in the periventricular and subcortical white matter, likely representing chronic small vessel ischemic changes. Mild cerebral volume loss is present. No intra-axial or extra-axial fluid collection seen. Cerebral ventricles: No ventriculomegaly. Paranasal sinuses: Small air-fluid levels noted in the frontal and maxillary sinuses. There is partial opacification of the ethmoid air cells. Mastoid air cells: Visualized mastoid air cells are well aerated. Bones/joints: Unremarkable. No acute fracture. Soft tissues: There is swelling of the soft tissues in the left periorbital region. No significant hematoma identified. CT/CT head wo con* [id number] IMPRESSION: No acute intracranial abnormality.
--- NOTE | 2023-03-10 09:49 | PC.NURSE ---
pt found sitting in floor next to bed. denies any new pain or injury. pt helped back up to his feet and walked back to bed. notified.
== END 2023-03-10 12:31 | disposition home or self-care (01) ==
PROVIDERS: Emergency Provider Family Medicine; PCP Internal Medicine
DX: S00.81XA Abrasion of other part of head, initial encounter (principal); W19.XXXA Unspecified fall, initial encounter; Y92.129 Unspecified place in nursing home as the place of occurrence of the external cause; E78.5 Hyperlipidemia, unspecified; I10 Essential (primary) hypertension; F17.210 Nicotine dependence, cigarettes, uncomplicated
CPT/HCPCS: 70450; 80053; 85025; 93005; 99285; J7040

== ENCOUNTER 2023-03-12 15:40 | Emergency (ER) | payer MEDICARE, MEDICAID, SELFPAY ==
[2023-03-12 15:43] VITALS: BP 117/87; PULSE 77; RESP 16; TEMP 36.7; O2SAT 99
--- NOTE | 2023-03-12 15:45 | W.ED.FALL ---
Documented by User: Bernardo Whelan MD 03/24/23 19:25 HPI - Fall General: Chief Complaint: Syncope Stated Complaint: fall Time Seen by Provider: 03/12/23 15:44 Limitations: altered mental status History of Present Illness: 77-year-old gentleman with multiple comorbidities presented to the emergency department for evaluation of recurrent falls. He did fall today. Patient himself provides essentially no meaningful clinical history. Review of Systems General: Reports: ROS unobtainable due to mental status PFSH ED PFSH: Medical History (Updated 03/20/23 @ 00:01 by CHRISSY Chaney) Alcohol abuse Hyperlipidemia Hypertension Vitamin B12 deficiency Family History Father CAD (coronary artery disease) Diabetes Social History Smoking and tobacco status: current every day smoker cigarettes Packs smoked per day: 1 Years cigarettes smoked: 40 Second hand smoke exposure: No Alcohol intake: current Alcohol intake frequency: 3 or more drinks per day Substance/Drug Use: never Caregiver/support person: Yes Marital status: Current occupational status: retired Current gender identity: Male Physical Exam Const: COMMON NORMALS: alert GENERAL APPEARANCE: cooperative and well developed HENMT: COMMON NORMALS: normocephalic HEAD & SCALP: normocephalic THROAT: posterior oropharynx normal OTHER: Possibly old versus reinjured left periorbital ecchymosis and laceration. Posterior head laceration with bleeding controlled. No wayne signs or raccoon eyes. No hemotympanum. No otorrhea or rhinorrhea. Jaw alignment normal. Dentition baseline. No obvious bony step-offs. No septal hematoma. No evidence of ocular entrapment. Eye: COMMON NORMALS: conjunctivae normal CONJUNCTIVA: Yes conjunctivae normal SCLERA: sclerae normal Neck/C-Spine: COMMON NORMALS: supple GENERAL: Yes trachea midline Chest: OTHER: Generalized tenderness palpation without obvious deformity. No subcutaneous air. No paradoxical segments. Resp: COMMON NORMALS: clear to auscultation bilaterally EFFORT & INSPECTION: Yes able to speak in complete sentences AUSCULTATION: clear to auscultation bilaterally Cardio: COMMON NORMALS: regular rate and regular rhythm RATE: regular rate RHYTHM: regular rhythm GI: COMMON NORMALS: Soft to palpation PALPATION: Yes Soft to palpation and Yes Tenderness to palpation present (GI) Extremity: GENERAL: Yes normal exam except as noted and No edema Neuro: COMMON NORMALS: moves all extremities SENSORIUM/ORIENTATION: Yes alert and Yes Orientation impaired Psych: MEMORY/COGNITION: Yes memory grossly impaired Course Vital Signs: Vital signs: Vital Signs Temperature 98.0 F 03/12/23 15:43 Pulse Rate 87 03/12/23 18:53 Respiratory Rate 16 03/12/23 18:53 Blood Pressure 124/85 03/12/23 18:53 Pulse Oximetry 94 03/12/23 18:53 Oxygen Delivery Me thod Room Air 03/12/23 15:43 MDM - Fall Medical Decision Making 77-year-old gentleman with history of frequent falls presenting due to fall. Head to toe exam performed. Imaging and laboratory studies ordered as appropriate. Handed off to Dr. Mojica pending completion of evaluation. Care assumed at change of shift CT chest abdomen pelvis other CT imaging reviewed. No acute findings patient does have an elevated white count 15 9 with evidence of cystitis. We will start him on oral antibiotics. Discharge back to the longterm. Patient has had multiple recent ground-level mechanical falls suspect some of this is his underlying conditions some of it may be related to medications. Recommend holding the zolpidem and hydroxyzine. Some of this may also be affected by his history of alcohol abuse may have some cerebellar atrophy and alcoholic peripheral neuropathy increasing his fall frequency. Laceration over the occiput 3 cm closed primarily with thor patient tolerated well thor removed in 10 days. Lab Data 03/12/23 16:30 03/12/23 16:30 Radiology Impressions Cervical Spine CT 03/12/23 15:59 IMPRESSION: No acute osseous injury. Chest/Abdomen/Pelvis CT 03/12/23 15:59 IMPRESSION: No acute findings in the chest IMPRESSION: No acute findings in the abdomen or pelvis. COMMENTS: Consistent with the [employer]'s Incidental Findings Committee white paper (J Am Saima Radiol 2018): Any incidental renal lesion less than 1 cm or classified as too small to characterize, or any incidental cystic renal lesion characterized as simple-appearing, is likely benign. No follow-up imaging is recommended for these lesions per consensus recommendations based on imaging criteria. Face CT 03/12/23 15:59 IMPRESSION: There is a left frontal and periorbital scalp soft tissue hematoma present. No acute facial bone fracture. Head CT 03/12/23 15:59 IMPRESSION: 1. No acute intracranial abnormality. 2. Moderate left frontal and periorbital scalp soft tissue hematoma with right parietal scalp laceration. Laboratory Results WBC 15.9 10^3/uL (4.0-10.0) H 03/12/23 16:30 RBC 3.32 10^6/uL (4.1-5.3) L 03/12/23 16:30 Hgb 9.5 g/dL (11.7-16.6) L 03/12/23 16:30 Hct 30.9 % (42.0-52.0) L 03/12/23 16:30 MCV 93.1 fl (80-94) 03/12/23 16:30 MCH 28.6 pg (28.0-34.0) 03/12/23 16:30 MCHC 30.7 g/dL (30.0-36.0) 03/12/23 16:30 RDW 15.1 % (12.1-15.1) 03/12/23 16:30 Plt Count 299 10^3/cmm (130-400) 03/12/23 16:30 MPV 10.1 fL (7.4-10.4) 03/12/23 16:30 Neut % (Auto) 79.2 % 03/12/23 16:30 Lymph % (Auto) 13.7 % 03/12/23 16:30 [place] % (Auto) 6.2 % 03/12/23 16:30 Eos % (Auto) 0.2 % 03/12/23 16:30 Baso % (Auto) 0.4 % 03/12/23 16:30 Neut # (Auto) 12.63 10^3/uL (1.8-7.7) H 03/12/23 16:30 Lymph # (Auto) 2.2 10^3/uL (0.8-4.8) 03/12/23 16:30 [place] # (Auto) 1.0 10^3/uL (0.2-0.9) H 03/12/23 16:30 Eos # (Auto) 0.0 10^3/uL (0.0-0.8) 03/12/23 16:30 Baso # (Auto) 0.1 10^3/uL (0.0-0.1) 03/12/23 16:30 Nucleated RBC % (auto) 0 % 03/12/23 16:30 Nucleated RBCs # 0.0 /100WBC 03/12/23 16:30 Sodium 138 mmol/L (136-145) 03/12/23 16:30 Potassium 3.9 mmol/L (3.5-5.1) 03/12/23 16:30 Chloride 102 mmol/L (98-107) 03/12/23 16:30 Carbon Dioxide 25 mmol/L (22-29) 03/12/23 16:30 Anion Gap 14.9 (5-19) 03/12/23 16:30 BUN 21 mg/dL (8-23) 03/12/23 16:30 Creatinine 1.2 mg/dL (0.7-1.2) 03/12/23 16:30 GFR Calculation Not Reportable 03/12/23 16:30 Glucose 112 mg/dL (65-115) 03/12/23 16:30 POC Glucose 112 mg/dL (70-110) H 03/12/23 16:04 Calculated Osmolality 290 mOsm/kg (285-295) 03/12/23 16:30 Calcium 9.6 mg/dL (8.5-10.5) 03/12/23 16:30 Troponin T Baseline 23 ng/L (0-15) H 03/12/23 16:30 Troponin T 120 Minute 21.40 ng/L (0-15) H 03/12/23 18:44 Delta Troponin T -1.60 ABS# (0-10) L 03/12/23 18:44 TSH 2.01 uIU/mL (0.27-4.20) 03/12/23 16:30 Urine Color Yellow (Yellow) 03/12/23 18:49 Urine Appearance Clear (CLEAR) 03/12/23 18:49 Urine pH 5 (5-7) 03/12/23 18:49 Ur Specific [place] 1.020 (1.005-1.030) 03/12/23 18:49 Urine Protein 3+ (Negative) H 03/12/23 18:49 Urine Glucose (UA) Norm (Normal) 03/12/23 18:49 Urine Ketones 1+ (Negative) H 03/12/23 18:49 Urine Blood 3+ (Negative) H 03/12/23 18:49 Urine Nitrate Negative (Negative) 03/12/23 18:49 Urine Bilirubin 1+ (Negative) H 03/12/23 18:49 Urine Urobilinogen 1 mg/dL (Negative) H 03/12/23 18:49 Ur Leukocyte Esterase Trace (Negative) H 03/12/23 18:49 Urine RBC 5-10 /hpf (0-2) H 03/12/23 18:49 Urine WBC 5-10 /hpf (0-5) H 03/12/23 18:49 Ur Squamous Epith Cells 0-4 /hpf (0-5) H 03/12/23 18:49 Amorphous Sediment Not Reportable 03/12/23 18:49 Urine Bacteria 2+ /hpf (NONE) H 03/12/23 18:49 Hyaline Casts 0-4 /lpf H 03/12/23 18:49 Fine Granular Casts 0-4 /lpf H 03/12/23 18:49 Urine Mucus 1+ /hpf 03/12/23 18:49 Discharge Plan Discharge Patient Disposition: Home Clinical Impression: Fall, Laceration of head, Medication side effects, History of alcohol abuse Condition: Stable Prescriptions: Discontinued hydroxyzine HCl 25 mg tablet 25 mg PO Q8H PRN (Reason: Anxiety) zolpidem 5 mg tablet 5 mg PO BEDTIME@1800 No Action Tylenol 325 mg Tablet 650 mg PO Q6H PRN (Reason: Pain) psyllium husk 2.6 gram/4.1 gram Powder See Rx Instructions .ROUTE .COMPLEX Rx Instructions: per package directions po prn quetiapine [Seroquel] 25 mg Tablet 25 mg PO Q8H PRN (Reason: for 14 days for behaviors) clopidogrel 75 mg tablet 75 mg PO BEDTIME@18 quetiapine 100 mg tablet 150 mg PO BEDTIME@18 haloperidol lactate 5 mg/mL solution 5 mg IM Q8H PRN (Reason: Agitation) Rx Instructions: for 14 days metoprolol tartrate 25 mg tablet 12.5 mg PO BID@08,18 quetiapine 50 mg tablet 50 mg PO DAILY@08 rosuvastatin 40 mg tablet 40 mg PO BEDTIME@18 naltrexone 50 mg tablet 50 mg PO DAILY@08 sennosides-docusate sodium [Senna-S] 8.6-50 mg Tablet 1 tab-cap PO BID@08,18 venlafaxine 150 mg capsule,extended release 24hr 150 mg PO DAILY@08 thiamine HCl (vitamin B1) 100 mg Tablet 100 mg PO DAILY@08 tamsulosin 0.4 mg capsule 0.4 mg PO DAILY@08 trazodone 100 mg tablet 100 mg PO BEDTIME@18 folic acid 1 mg tablet 1 mg PO DAILY@08 melatonin 3 mg Capsule 3 mg PO BEDTIME@18 Discharge Orders: Discharge ED (Routine); Ordered 03/12/23 Ordered By: Arthur Mojica Referrals: Jorge Shahid MD [Primary Care Provider] - Patient Instructions: Opioid Safety, Pain Management Activity Restrictions/Additional Instructions: Remove thor in 7 to 10 days Sign Out Sign Out Data: Patient Sign Out occurred on 03/12/23 at 18:20. Patient's care was discussed, and care was transferred from to Arthur Mojica DO. Coding Level of Care Code ED Supervisor [employer] for g Fwd Documented by User: Arthur Mojica DO 03/12/23 21:45 HPI - Fall General: Chief Complaint: Syncope Stated Complaint: fall Time Seen by Provider: 03/12/23 15:44 [facility] PFSH: Medical History (Updated 03/20/23 @ 00:01 by CHRISSY Chaney) Alcohol abuse Hyperlipidemia Hypertension Vitamin B12 deficiency Family History Father CAD (coronary artery disease) Diabetes Social History Smoking and tobacco status: current every day smoker cigarettes Packs smoked per day: 1 Years cigarettes smoked: 40 Second hand smoke exposure: No Alcohol intake: current Alcohol intake frequency: 3 or more drinks per day Substance/Drug Use: never Caregiver/support person: Yes Marital status: Current occupational status: retired Current gender identity: Male Procedures Laceration Laceration 1: Site: scalp Size (cm): 3 Skin layer closed with: other (Closed with 3 thor) Course Vital Signs: Vital signs: Vital Signs Temperature 98.0 F 03/12/23 15:43 Pulse Rate 87 03/12/23 18:53 Respiratory Rate 16 03/12/23 18:53 Blood Pressure 124/85 03/12/23 18:53 Pulse Oximetry 94 03/12/23 18:53 Oxygen Delivery Me thod Room Air 03/12/23 15:43 MDM - Fall Medical Decision Making Possibly old versus reinjured left periorbital ecchymosis and laceration. Posterior head lack. Care assumed at change of shift CT chest abdomen pelvis other CT imaging reviewed. No acute findings patient does have an elevated white count 15 9 with evidence of cystitis. We will start him on oral antibiotics. Discharge back to the longterm. Patient has had multiple recent ground-level mechanical falls suspect some of this is his underlying conditions some of it may be related to medications. Recommend holding the zolpidem and hydroxyzine. Some of this may also be affected by his history of alcohol abuse may have some cerebellar atrophy and alcoholic peripheral neuropathy increasing his fall frequency. Laceration over the occiput 3 cm closed primarily with thor patient tolerated well thor removed in 10 days. Medical Records I reviewed the patient's medical records. Lab Data I reviewed the patient's lab results. 03/12/23 16:30 03/12/23 16:30 Radiology Impressions Cervical Spine CT 03/12/23 15:59 IMPRESSION: No acute osseous injury. Chest/Abdomen/Pelvis CT 03/12/23 15:59 IMPRESSION: No acute findings in the chest IMPRESSION: No acute findings in the abdomen or pelvis. COMMENTS: Consistent with the [employer]'s Incidental Findings Committee white paper (J Am Saima Radiol 2018): Any incidental renal lesion less than 1 cm or classified as too small to characterize, or any incidental cystic renal lesion characterized as simple-appearing, is likely benign. No follow-up imaging is recommended for these lesions per consensus recommendations based on imaging criteria. Face CT 03/12/23 15:59 IMPRESSION: There is a left frontal and periorbital scalp soft tissue hematoma present. No acute facial bone fracture. Head CT 03/12/23 15:59 IMPRESSION: 1. No acute intracranial abnormality. 2. Moderate left frontal and periorbital scalp soft tissue hematoma with right parietal scalp laceration. Laboratory Results WBC 15.9 10^3/uL (4.0-10.0) H 03/12/23 16:30 RBC 3.32 10^6/uL (4.1-5.3) L 03/12/23 16:30 Hgb 9.5 g/dL (11.7-16.6) L 03/12/23 16:30 Hct 30.9 % (42.0-52.0) L 03/12/23 16:30 MCV 93.1 fl (80-94) 03/12/23 16:30 MCH 28.6 pg (28.0-34.0) 03/12/23 16:30 MCHC 30.7 g/dL (30.0-36.0) 03/12/23 16:30 RDW 15.1 % (12.1-15.1) 03/12/23 16:30 Plt Count 299 10^3/cmm (130-400) 03/12/23 16:30 MPV 10.1 fL (7.4-10.4) 03/12/23 16:30 Neut % (Auto) 79.2 % 03/12/23 16:30 Lymph % (Auto) 13.7 % 03/12/23 16:30 [place] % (Auto) 6.2 % 03/12/23 16:30 Eos % (Auto) 0.2 % 03/12/23 16:30 Baso % (Auto) 0.4 % 03/12/23 16:30 Neut # (Auto) 12.63 10^3/uL (1.8-7.7) H 03/12/23 16:30 Lymph # (Auto) 2.2 10^3/uL (0.8-4.8) 03/12/23 16:30 [place] # (Auto) 1.0 10^3/uL (0.2-0.9) H 03/12/23 16:30 Eos # (Auto) 0.0 10^3/uL (0.0-0.8) 03/12/23 16:30 Baso # (Auto) 0.1 10^3/uL (0.0-0.1) 03/12/23 16:30 Nucleated RBC % (auto) 0 % 03/12/23 16:30 Nucleated RBCs # 0.0 /100WBC 03/12/23 16:30 Sodium 138 mmol/L (136-145) 03/12/23 16:30 Potassium 3.9 mmol/L (3.5-5.1) 03/12/23 16:30 Chloride 102 mmol/L (98-107) 03/12/23 16:30 Carbon Dioxide 25 mmol/L (22-29) 03/12/23 16:30 Anion Gap 14.9 (5-19) 03/12/23 16:30 BUN 21 mg/dL (8-23) 03/12/23 16:30 Creatinine 1.2 mg/dL (0.7-1.2) 03/12/23 16:30 GFR Calculation Not Reportable 03/12/23 16:30 Glucose 112 mg/dL (65-115) 03/12/23 16:30 POC Glucose 112 mg/dL (70-110) H 03/12/23 16:04 Calculated Osmolality 290 mOsm/kg (285-295) 03/12/23 16:30 Calcium 9.6 mg/dL (8.5-10.5) 03/12/23 16:30 Troponin T Baseline 23 ng/L (0-15) H 03/12/23 16:30 Troponin T 120 Minute 21.40 ng/L (0-15) H 03/12/23 18:44 Delta Troponin T -1.60 ABS# (0-10) L 03/12/23 18:44 TSH 2.01 uIU/mL (0.27-4.20) 03/12/23 16:30 Urine Color Yellow (Yellow) 03/12/23 18:49 Urine Appearance Clear (CLEAR) 03/12/23 18:49 Urine pH 5 (5-7) 03/12/23 18:49 Ur Specific [place] 1.020 (1.005-1.030) 03/12/23 18:49 Urine Protein 3+ (Negative) H 03/12/23 18:49 Urine Glucose (UA) Norm (Normal) 03/12/23 18:49 Urine Ketones 1+ (Negative) H 03/12/23 18:49 Urine Blood 3+ (Negative) H 03/12/23 18:49 Urine Nitrate Negative (Negative) 03/12/23 18:49 Urine Bilirubin 1+ (Negative) H 03/12/23 18:49 Urine Urobilinogen 1 mg/dL (Negative) H 03/12/23 18:49 Ur Leukocyte Esterase Trace (Negative) H 03/12/23 18:49 Urine RBC 5-10 /hpf (0-2) H 03/12/23 18:49 Urine WBC 5-10 /hpf (0-5) H 03/12/23 18:49 Ur Squamous Epith Cells 0-4 /hpf (0-5) H 03/12/23 18:49 Amorphous Sediment Not Reportable 03/12/23 18:49 Urine Bacteria 2+ /hpf (NONE) H 03/12/23 18:49 Hyaline Casts 0-4 /lpf H 03/12/23 18:49 Fine Granular Casts 0-4 /lpf H 03/12/23 18:49 Urine Mucus 1+ /hpf 03/12/23 18:49 Discharge Plan Discharge Patient Disposition: Home Clinical Impression: Fall, Laceration of head, Medication side effects, History of alcohol abuse Condition: Stable Prescriptions: Discontinued hydroxyzine HCl 25 mg tablet 25 mg PO Q8H PRN (Reason: Anxiety) zolpidem 5 mg tablet 5 mg PO BEDTIME@1800 No Action Tylenol 325 mg Tablet 650 mg PO Q6H PRN (Reason: Pain) psyllium husk 2.6 gram/4.1 gram Powder See Rx Instructions .ROUTE .COMPLEX Rx Instructions: per package directions po prn quetiapine [Seroquel] 25 mg Tablet 25 mg PO Q8H PRN (Reason: for 14 days for behaviors) clopidogrel 75 mg tablet 75 mg PO BEDTIME@18 quetiapine 100 mg tablet 150 mg PO BEDTIME@18 haloperidol lactate 5 mg/mL solution 5 mg IM Q8H PRN (Reason: Agitation) Rx Instructions: for 14 days metoprolol tartrate 25 mg tablet 12.5 mg PO BID@08,18 quetiapine 50 mg tablet 50 mg PO DAILY@08 rosuvastatin 40 mg tablet 40 mg PO BEDTIME@18 naltrexone 50 mg tablet 50 mg PO DAILY@08 sennosides-docusate sodium [Senna-S] 8.6-50 mg Tablet 1 tab-cap PO BID@08,18 venlafaxine 150 mg capsule,extended release 24hr 150 mg PO DAILY@08 thiamine HCl (vitamin B1) 100 mg Tablet 100 mg PO DAILY@08 tamsulosin 0.4 mg capsule 0.4 mg PO DAILY@08 trazodone 100 mg tablet 100 mg PO BEDTIME@18 folic acid 1 mg tablet 1 mg PO DAILY@08 melatonin 3 mg Capsule 3 mg PO BEDTIME@18 Discharge Orders: Discharge ED (Routine); Ordered 03/12/23 Ordered By: Arthur Mojica Referrals: Jorge Shahid MD [Primary Care Provider] - Patient Instructions: Opioid Safety, Pain Management Activity Restrictions/Additional Instructions: Remove thor in 7 to 10 days Sign Out Sign Out Data: Patient Sign Out occurred on 03/12/23 at 18:20. Patient's care was discussed, and care was transferred from to Arthur Mojica DO. Coding Level of Care Code ED Supervisor [employer] for Leeann Garza
--- NOTE | 2023-03-12 15:59 | CTR_ITS ---
PROCEDURE INFORMATION: Exam: CT Head Without Contrast Exam date and time: 03/12/2023 5:25 PM Age: 77 years old Clinical indication: Injury or trauma; Fall; Blunt trauma (contusions or hematomas); Without loss of consciousness; Additional info: Fall, AMS TECHNIQUE: Imaging protocol: Computed tomography of the head without contrast. Radiation optimization: All CT scans at this facility use at least one of these dose optimization techniques: automated exposure control; mA and/or kV adjustment per patient size (includes targeted exams where dose is matched to clinical indication); or iterative reconstruction. REPORTING DATA: Count of CT and Cardiac NM exams in prior 12 months: This patient has received 4 known CTs and 0 known cardiac nuclear medicine studies in the 12 months prior to the current study. COMPARISON: CT head wo con* [id number] 03/10/2023 8:38 AM RADIATION DOSE METRICS: Total DLP (mGy-cm): 946 FINDINGS: Brain: No acute infarct. No hemorrhage. Stable involutional changes of the brain. No mass effect. Cerebral ventricles: Stable ventricular size. No ventriculomegaly. Paranasal sinuses: Scattered paranasal sinus mucosal thickening, without air-fluid level present. Mastoid air cells: Trace right mastoid effusion. Bones/joints: Unremarkable. No acute fracture. Soft tissues: Moderate left frontal and periorbital scalp soft tissue hematoma. Right parietal scalp laceration injury also seen. CT/CT head wo con* [id number] IMPRESSION: 1. No acute intracranial abnormality. 2. Moderate left frontal and periorbital scalp soft tissue hematoma with right parietal scalp laceration.
--- NOTE | 2023-03-12 15:59 | CTR_ITS ---
PROCEDURE INFORMATION: Exam: CT Cervical Spine Without Contrast Exam date and time: 03/12/2023 5:25 PM Age: 77 years old Clinical indication: Injury or trauma; Fall; Blunt trauma; Additional info: Fall, AMS TECHNIQUE: Imaging protocol: Computed tomography of the cervical spine without contrast. Radiation optimization: All CT scans at this facility use at least one of these dose optimization techniques: automated exposure control; mA and/or kV adjustment per patient size (includes targeted exams where dose is matched to clinical indication); or iterative reconstruction. REPORTING DATA: Count of CT and Cardiac NM exams in prior 12 months: This patient has received 4 known CTs and 0 known cardiac nuclear medicine studies in the 12 months prior to the current study. COMPARISON: CT cervical spin wo con* [id number] 03/08/2023 10:48 PM RADIATION DOSE METRICS: Total DLP (mGy-cm): 1174.5 FINDINGS: Bones/joints: The cervical spine is straightened which may be positional or related to spasm. No acute fracture. Multilevel degenerative changes are present. Lungs: Lung apices are normal. Soft tissues: Unremarkable. CT/CT cervical spin wo con* [id number] IMPRESSION: No acute osseous injury.
--- NOTE | 2023-03-12 15:59 | CTR_ITS ---
PROCEDURE INFORMATION: Exam: CT Chest With Contrast; Diagnostic Exam date and time: 03/12/2023 5:31 PM Age: 77 years old Clinical indication: Injury or trauma; Fall; Generalized; Blunt trauma (contusions or hematomas); Additional info: Fall, AMS TECHNIQUE: Imaging protocol: Diagnostic computed tomography of the chest with contrast. Radiation optimization: All CT scans at this facility use at least one of these dose optimization techniques: automated exposure control; mA and/or kV adjustment per patient size (includes targeted exams where dose is matched to clinical indication); or iterative reconstruction. Contrast material: OMNIPAQUE 350; Contrast volume: 100 ml; Contrast route: INTRAVENOUS (IV); REPORTING DATA: Count of CT and Cardiac NM exams in prior 12 months: This patient has received 4 known CTs and 0 known cardiac nuclear medicine studies in the 12 months prior to the current study. COMPARISON: CR XR chest 1V portable [id number] 03/27/2022 3:02 PM RADIATION DOSE METRICS: Total DLP (mGy-cm): 0.01 FINDINGS: Lungs: There is some rounded atelectasis at the right lung base. No acute appearing infiltrate is identified. Pleural spaces: There are no pleural effusions present. There is no evidence of pneumothorax. Heart: Unremarkable. No cardiomegaly. No pericardial effusion. Coronary arteries: There is severe atherosclerotic calcification of the coronary arteries. Lymph nodes: There is no evidence of lymphadenopathy. 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 Allowing for pulsation artifact there is no evidence for aortic dissection. Bones/joints: There are old healed right 9th and 10th rib fractures. There are old healed left 9th 10th and 11th rib fractures. The thoracic spine demonstrates moderate degenerative changes at multiple levels. No acute fracture is identified. Soft tissues: Unremarkable. PROCEDURE INFORMATION: Exam: CT Abdomen And Pelvis With Contrast Exam date and time: 03/12/2023 5:31 PM Age: 77 years old Clinical indication: Injury or trauma; Fall; Generalized; Blunt trauma (contusions or hematomas); Additional info: Fall, AMS TECHNIQUE: Imaging protocol: Computed tomography of the abdomen and pelvis with contrast. Radiation optimization: All CT scans at this facility use at least one of these dose optimization techniques: automated exposure control; mA and/or kV adjustment per patient size (includes targeted exams where dose is matched to clinical indication); or iterative reconstruction. Contrast material: OMNIPAQUE 350; Contrast volume: 100 ml; Contrast route: INTRAVENOUS (IV); REPORTING DATA: Count of CT and Cardiac NM exams in prior 12 months: This patient has received 4 known CTs and 0 known cardiac nuclear medicine studies in the 12 months prior to the current study. COMPARISON: CR (PELVIS, ) 03/08/2023 10:41 PM RADIATION DOSE METRICS: Total DLP (mGy-cm): 757.98 FINDINGS: Liver: There is no focal abnormality within the liver. Gallbladder and bile ducts: The gallbladder is normal. Pancreas: The pancreas is normal. Spleen: The spleen is normal. Adrenal glands: The adrenal glands are normal. Kidneys and ureters: There are tiny cortical cysts in both kidneys too small to definitively characterize by CT scanning. These most likely represent benign simple cysts. There is a 1.5 cm sized benign simple cyst mid right kidney. There is a left renal collecting system calcification. There is no evidence of hydronephrosis. There is no stone along the course of either ureter. Stomach and bowel: There is no evidence of colitis/diverticulitis. There is no evidence of intestinal obstruction. Appendix: Not identified Intraperitoneal space: There is no evidence of free intraperitoneal fluid. Vasculature: The aorta demonstrates moderate atherosclerotic calcification. There is no evidence of an abdominal aortic aneurysm. Lymph nodes: There is no evidence of lymphadenopathy. Urinary bladder: There is a Quarles catheter within the urinary bladder. Reproductive: Unremarkable as visualized. Bones/joints: The lumbar spine demonstrates moderate degenerative changes at multiple levels. There is multilevel lumbar stenosis. There is mild scoliosis concave to the right. There is chronic appearing compression deformity superior endplate of L1. No acute fracture is identified. Soft tissues: Unremarkable. CT/CT chest abdpel w/*[id number] IMPRESSION: No acute findings in the chest IMPRESSION: No acute findings in the abdomen or pelvis. COMMENTS: Consistent with the [employer]'s Incidental Findings Committee white paper (J Am Saima Radiol 2018): Any incidental renal lesion less than 1 cm or classified as too small to characterize, or any incidental cystic renal lesion characterized as simple-appearing, is likely benign. No follow-up imaging is recommended for these lesions per consensus recommendations based on imaging criteria.
--- NOTE | 2023-03-12 15:59 | CTR_ITS ---
PROCEDURE INFORMATION: Exam: CT Maxillofacial Without Contrast Exam date and time: 03/12/2023 5:25 PM Age: 77 years old Clinical indication: Injury or trauma; Fall; Blunt trauma (contusions or hematomas); Forehead; Additional info: Fall, AMS TECHNIQUE: Imaging protocol: Computed tomography of the face without contrast. Radiation optimization: All CT scans at this facility use at least one of these dose optimization techniques: automated exposure control; mA and/or kV adjustment per patient size (includes targeted exams where dose is matched to clinical indication); or iterative reconstruction. REPORTING DATA: Count of CT and Cardiac NM exams in prior 12 months: This patient has received 4 known CTs and 0 known cardiac nuclear medicine studies in the 12 months prior to the current study. COMPARISON: 1. CT head wo con* [id number] 03/10/2023 8:[address] head wo con* [id number] 03/12/2023 5:25 PM RADIATION DOSE METRICS: Total DLP (mGy-cm): 1128.8 FINDINGS: Orbital cavities: Orbits are normal. Globes are unremarkable. Bones/joints: Right-sided maxillary palatal cleft. No acute facial bone fracture. Paranasal sinuses: Scattered paranasal sinus mucosal thickening, without air-fluid level present. Mastoid air cells: Minimal right mastoid effusion. Soft tissues: There is a left frontal and periorbital scalp soft tissue hematoma present. CT/CT facial bones wo con* [id number] IMPRESSION: There is a left frontal and periorbital scalp soft tissue hematoma present. No acute facial bone fracture.
--- NOTE | 2023-03-12 16:00 | ECG_ITS ---
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 Measurements Intervals [place] Rate: 78 P: 71 DE: 183 QRS: 66 QRSD: 92 T: 44 QT: 338 QTc: 386 Interpretive Statements SINUS RHYTHM WITH OCCASIONAL VENTRICULAR PREMATURE COMPLEXES NONSPECIFIC T-WAVE ABNORMALITY Compared to ECG 03/10/2023 07:18:41 T-wave abnormality now present Electronically Signed On 03-13-2023 6:57:39 CDT by Catina Dai M.D. [id number]
[2023-03-12 16:07] LABS: Glucose Point of Care 112 mg/dL (70-110)
--- NOTE | 2023-03-12 16:23 | PC.PHAR ---
pt is [facility] [phone]-per bushra nurse from [facility] states the pt had all am meds and no prns
[2023-03-12 16:30] VITALS: BP 110/69; PULSE 72; RESP 16; O2SAT 97
[2023-03-12 16:38] LABS: Basophils # 0.1 10^3/uL (0.0-0.1); Basophils % 0.4 %; Eosinophils % 0.2 %; Hematocrit 30.9 % (42.0-52.0); Hemoglobin 9.5 g/dL (11.7-16.6); Lymphocytes # 2.2 10^3/uL (0.8-4.8); Lymphocytes % 13.7 %; Mean Corpuscular HGB Conc 30.7 g/dL (30.0-36.0); Mean Corpuscular Hemoglobin 28.6 pg (28.0-34.0); Mean Corpuscular Volume 93.1 fl (80-94); Mean Platelet Volume 10.1 fL (7.4-10.4); Monocytes % 6.2 %; Neutrophils # 12.63 10^3/uL (1.8-7.7); Neutrophils % 79.2 %; Nucleated Red Blood Cells % 0 %; Platelet Count 299 10^3/cmm (130-400); Red Blood Count 3.32 10^6/uL (4.1-5.3); Red Cell Distribution Width 15.1 % (12.1-15.1); White Blood Count 15.9 10^3/uL (4.0-10.0)
[2023-03-12 17:00] VITALS: BP 126/92; PULSE 76
[2023-03-12 17:05] LABS: Anion Gap 14.9 (5-19); Blood Urea Nitrogen 21 mg/dL (8-23); Calcium 9.6 mg/dL (8.5-10.5); Carbon Dioxide 25 mmol/L (22-29); Chloride 102 mmol/L (98-107); Creatinine Clr Calc Pharmacy 52.6041; Glucose 112 mg/dL (65-115); Osmolality Calculated 290 mOsm/kg (285-295); Potassium 3.9 mmol/L (3.5-5.1); Sodium 138 mmol/L (136-145); Thyroid Stimulating Hormone 2.01 uIU/mL (0.27-4.20)
[2023-03-12 17:06] LABS: Troponin(5th) Baseline 23 ng/L (0-15)
[2023-03-12] MEDS: sodium chloride 0.9% 1,000 ML 999 ML IV (17:19)
[2023-03-12] MEDS: iohexol 350 mg/mL 500 mL Btl (per mL) IV (17:27)
--- NOTE | 2023-03-12 18:00 | ECG_ITS ---
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 Measurements Intervals [place] Rate: 88 P: 47 PA: 175 QRS: 64 QRSD: 94 T: 25 QT: 312 QTc: 378 Interpretive Statements SINUS RHYTHM NONSPECIFIC T-WAVE ABNORMALITY Compared to ECG 03/12/2023 15:58:38 Ventricular premature complex(es) no longer present T-wave abnormality still present Electronically Signed On 03-13-2023 6:59:52 CDT by Catina Dai M.D. [id number]
[2023-03-12 18:53] VITALS: BP 124/85; PULSE 87; RESP 16; O2SAT 94
[2023-03-12 19:06] LABS: Bilirubin Urine 1+ (Negative); Blood Urine 3+ (Negative); Glucose Urine UA Norm (Normal); Ketones Urine 1+ (Negative); Nitrate Urine Negative (Negative); Protein Urine 3+ (Negative); Urine Appearance Clear (CLEAR); Urine Color Yellow (Yellow); Urobilinogen Urine 1 mg/dL (Negative); pH Urine 5 (5-7)
[2023-03-12 19:07] LABS: Add Urine Microscopic? YES; Leukocyte Esterase Urine Trace (Negative)
[2023-03-12 19:12] LABS: Bacteria Urine 2+ /hpf; Fine Granular Casts Urine 0-4 /lpf; Hyaline Casts Urine 0-4 /lpf; Mucus Urine 1+ /hpf; Squamous Epithelial Cell Urine 0-4 /hpf (0-5)
[2023-03-12] MEDS: bacitracin ointment Pkt 1 EACH TOPICAL (20:48)
== END 2023-03-12 22:52 | disposition home or self-care (01) ==
PROVIDERS: Emergency Medicine; Emergency Provider Family Medicine; PCP Internal Medicine
DX: S01.91XA Laceration without foreign body of unspecified part of head, initial encounter (principal); T88.7XXA Unspecified adverse effect of drug or medicament, initial encounter; T50.905A Adverse effect of unspecified drugs, medicaments and biological substances, initial encounter; E78.5 Hyperlipidemia, unspecified; I10 Essential (primary) hypertension; F17.210 Nicotine dependence, cigarettes, uncomplicated; W19.XXXA Unspecified fall, initial encounter; F10.11 Alcohol abuse, in remission; Z79.02 Long term (current) use of antithrombotics/antiplatelets
CPT/HCPCS: 36415; 36416; 70450; 70486; 71260; 72125; 74177; 80048; 81001; 82962; 84443; 84484; 85025; 93005; 96360; 99285; J7030; Q9967